=== PATIENT | female | born 1925 | race Caucasian/White ===

== ENCOUNTER 2017-03-22 22:32 | Inpatient (IN) | payer MEDICARE ==
[~2017-03-22] VITALS: Ht 154.9 cm; Wt 73.5 kg
[~2017-03-22 22:32] MED LIST: BISA10R PR; CITA-48 PO; DOCU1CAP39 PO; E.E.200S PO; ENOX30P SQ; FLEEENE3 PR; GABA300 PO; LEVO100T4 PO; LEVO125T48 PO; LOMO2.5T PO; LORT5TAB PO; MAGN30S PO; MAGN400 PO; MEVA40TA PO; MEVA40TA6 PO; NIFE1TAB85 PO; ONDAN4 PO; PRAM1TAB PO; PRIL20CA PO; PRIL40CA PO; TRAM50 PO; VITA200017 PO; [UNRECOGNIZED DRUG - CODE] PO
[2017-03-22 22:34] VITALS: BP 140/78; PULSE 83; RESP 16; TEMP 98; O2SAT 99
[2017-03-22] MEDS ORDERED: KETOROLAC TROMETHAMINE 30 MG/ML (IVP) VIAL IV PUSH ONE (23:45)
[2017-03-22] MEDS ORDERED: SODIUM CHLORIDE 0.9% FLUSH 10 ML FLUSH IVF PRN (23:45)
[2017-03-23] VITALS (7 sets, daily range): BP systolic 102–138; BP diastolic 53–68; PULSE 73–91; RESP 16–19; TEMP 97.4–98.4; O2SAT 95–98
[2017-03-23 00:16] LABS: AUTOMATED NEUTROPHIL # 6.4 TH/MM3 (1.8-7.7); BASOPHIL % 0.4 % (0.0-2.0); EOSINOPHIL # 0.2 TH/MM3 (0-0.4); EOSINOPHIL % 2.9 % (0.0-4.0); HEMO FLAGS DIFF FINAL; LYMPH % 15.3 % (9.0-44.0); LYMPHOCYTE # 1.3 TH/MM3 (1.0-4.8); MEAN CELL VOLUME 81.8 FL (80.0-100.0); MEAN CORPUSCULAR HEMOGLOBIN 26.8 PG (27.0-34.0); MEAN CORPUSCULAR HGB CONC 32.8 % (32.0-36.0); MONO % 6.8 % (0.0-8.0); NEUT % 74.6 % (16.0-70.0); PLATELET COUNT 170 TH/MM3 (150-450); RED BLOOD COUNT 4.89 MIL/MM3 (4.00-5.30); WHITE BLOOD COUNT 8.5 TH/MM3 (4.0-11.0)
[2017-03-23 00:33] LABS: BICARBONATE 28.4 MEQ/L (21.0-32.0); POTASSIUM 3.9 MEQ/L (3.5-5.1)
[2017-03-23] MEDS ORDERED: IOHEXOL 350 MG/ML 10 ML VIAL (for RAD DIAG) IVCONTRAST ONE (01:13)
[2017-03-23 01:41] LABS: BLOOD, URINE NEG (NEG); COMMENT (UR) CATH-CULTURE IND; CULTURE IF INDICATED CATH CULTURE IND; GLUCOSE,URINE NEG (NEG); HYALINE CAST, URINE 3 /lpf (RARE); KETONE, URINE NEG (NEG); MUCUS URINE FEW /lpf (OCC); NITRITE,URINE POS (NEG); SQUAMOUS EPITHELIAL CELL URINE 1 /hpf (0-5); URINE COLOR YELLOW (YELLW/STRAW)
[2017-03-23] MEDS ORDERED: CLINDAMYCIN 600 MG/NS PREMIX 50 ML IV ONE (01:45)
--- NOTE | 2017-03-23 02:14 | RADRPT ---
EXAM DATE/TIME: 03/23/2017 00:32 [facility] COMPARISON: MRI BRAIN W/O CONTRAST, June 19, 2010, 8:59. MRI BRAIN W/O CONTRAST, June 17, 2010, 16:58. CT BRA IN W/O CONTRAST, August 07, 2015, 14:25. INDICATIONS : Left sided neck swelling. IV CONTRAST: 70 cc Omnipaque 350 (iohexol) IV RADIATION DOSE: 14.38 CTDIvol (mGy) MEDICAL HISTORY : Hypertension. Cardiovascular disease SURGICAL HISTORY : Appendectomy. Cholecystectomy.Hysterectomy. ENCOUNTER: Initial ACUITY: 1 day PAIN SCALE: 3/10 LOCATION: neck TECHNIQUE: Volumetric scanning of the neck was performed. Using automated exposure control and adjustment of th e mA and/or kV according to patient size, radiation dose was kept as low as reasonably achievable to obtain optimal diagnostic quality images. DICOM format image data is available electronically for r eview and comparison. FINDINGS: There is an extra-axial appearing mass in the left frontal region intracranially measured 3.1 x 2.2 c m in AP and transverse dimension. This has been described previously. The esophagus is distended and fluid-filled. Nasopharynx, oropharynx, hypopharynx and larynx are unremarkable. Thyroid is unremarkab le. The submandibular glands and right parotid gland are normal. The left parotid gland demonstrates increased density relative to the right without focal mass. There is stranding of the subcutaneous fa t of the left face and skin thickening characteristic of cellulitis. A parotitis is also suspected gi elias the asymmetric enhancement of the left parotid gland. There is atherosclerotic plaquing of the bi lateral carotid bifurcations. No pathologically enlarged lymph nodes are identified. CONCLUSION: 1. Abnormal stranding of the subcutaneous fat and skin thickening left neck and parotid region with a symmetric enhancement of the left parotid as compared to the right. The findings would be characteris tic of a parotitis and cellulitis. 2. Mildly distended, fluid-filled esophagus is present. 3. Extra-axial left frontal intracranial mass previously characterized as a meningioma. 4. Atherosclerosis. Ag Flower MD on March 23, 2017 at 2:09 Board Certified Radiologist. This report was verified electronically.
--- NOTE | 2017-03-23 02:31 | PD ---
HPI Chief Complaint: Skin Problem Time Seen by Provider: 23:35 Travel History International Travel<30 days: No Contact w/Intl Traveler<30days: No Traveled to known affect area: No History of Present Illness HPI 89 year-old female presents to the emergency department in the care of her family for one day of progressively worsening redness and swelling to the right side of the face and neck. No fever or chills. Patient has noted some soreness with swallowing but no difficulty swallowing or handling her oral secretions. Patient denies any injury. Family members have noticed increasing swelling significant this evening. Patient lives by herself. Patient is currently on no antibiotics. Patient has extensive past medical history including hypothyroidism dyslipidemia fibromyalgia depression anxiety osteoarthritis status post appendectomy cholecystectomy shoulder fracture hysterectomy cervical disc disease restless leg syndrome. Family has been checking on her frequently. This evening symptoms also associated with nausea and vomiting. No chest pain no shortness of breath no stridor no hoarseness. No abdominal pain no flank pain dysuria frequency urgency. Has noted increased generalized weakness. Pain is 10 over 10 intensity. PFSH Past Medical History Narrative Medical Dyslipidemia hypothyroidism airway bowel syndrome depression and anxiety fibromyalgia osteoarthritis restless leg syndrome appendectomy cholecystectomy to [facility] repair shoulder fracture repair hysterectomy cervical spine nerve block; no tobacco use no alcohol use; nursing notes reviewed Hx Anticoagulant Therapy: No Anxiety: Yes Depression: Yes Cancer: No Cardiovascular Problems: Yes High Cholesterol: Yes Diabetes: No Endocrine: Yes Gastrointestinal Disorders: Yes (Appy/ choly) Glaucoma: No Gout: Yes Genitourinary: No Hepatitis: No Hiatal Hernia: No Hypertension: Yes Implanted Vascular Access Dvce: No Medical other: No Musculoskeletal: Yes Neurologic: No Reproductive: No Respiratory: No Thyroid Disease: Yes (hypothytroidism) Tubal Ligation: Yes Past Surgical History Abdominal Surgery: Yes (ALEJANDRA) Appendectomy: Yes Section: Yes Cholecystectomy: Yes Eye Surgery: Yes (CATARACT RIGHT EYE) Genitourinary Surgery: Yes (bladder suspension) Hysterectomy: Yes Pacemaker: No Other Surgery: Yes Social History Alcohol Use: No Tobacco Use: No Substance Use: No Allergies-Medications (Allergen,Severity, Reaction): Coded Allergies: asparagus (Unverified Allergy, Severe, sob, 03/22/17) elizalde pod (Unverified Allergy, Severe, sob, 03/22/17) duloxetine (Unverified Allergy, Unknown, 03/22/17) rivaroxaban (Unverified Allergy, Unknown, 03/22/17) trazodone (Unverified Allergy, Unknown, 03/22/17) *MDRO Multi-Drug Resistant Organism (Verified Adverse Reaction, Unknown, 03/22/17) ESBL+E.Coli urine 07/2015 Reported Meds & Prescriptions Reported Meds & Active Scripts Active Active Prescriptions or Reported Medications Unobtainable Review of Systems Except as stated in HPI: all other systems reviewed are Neg General / Constitutional: No: Fever, Chills HENT: No: Congestion Cardiovascular: No: Chest Pain or Discomfort Respiratory: No: Shortness of Breath Gastrointestinal: Positive: Nausea, Vomiting, No: Abdominal Pain Genitourinary: No: Dysuria Musculoskeletal: No: Weakness Skin: Positive Rash, Positive Lumps Neurologic: Positive: Weakness, No: Dizziness, Syncope, Focal Abnormalities Psychiatric: No: Anxiety Hematologic/Lymphatic: No: Easy Bruising Physical Exam Narrative GENERAL: Elderly frail female in no acute distress no respiratory distress SKIN: Warm and dry. HEAD: Normocephalic. EYES: No scleral icterus. No injection or drainage. NECK: Supple, trachea midline. No JVD or lymphadenopathy. Left-sided neck redness swelling and induration without fluctuance tenderness is noted increased warmth CARDIOVASCULAR: Regular rate and rhythm without murmurs, gallops, or rubs. RESPIRATORY: Breath sounds equal bilaterally. No accessory muscle use. GASTROINTESTINAL: Abdomen soft, non-tender, nondistended. MUSCULOSKELETAL: No cyanosis, or edema. BACK: Nontender without obvious deformity. No CVA tenderness. Data Data Last Documented VS Vital Signs Date Time Temp Pulse Resp B/P (MAP) Pulse Ox O2 Delivery O2 Flow Rate FiO2 03/22/17 22:34 98.0 83 16 140/78 (98) 99 Room Air Orders Orders Basic Metabolic Panel (Bmp) (03/22/17 23:35) Complete Blood Count With Diff (03/22/17 23:35) Blood Culture (03/22/17 23:35) Ct Soft Tiss Neck W Iv Cont (03/22/17 23:35) Iv Access Insert/Monitor (03/22/17 23:35) Sodium Chloride 0.9% Flush (Ns Flush) (03/22/17 23:45) Ketorolac Inj (Toradol Inj) (03/22/17 23:45) Urinalysis - C+S If Indicated (03/22/17 23:35) Iohexol 350 Inj (Omnipaque 350 Inj) (03/23/17 01:13) Clindamycin 600 Mg/Ns Premix (Cleocin 60 (03/23/17 01:45) Urine Culture (03/23/17 01:30) Admit To Inpatient (03/23/17 ) Code Status (03/23/17 02:37) Vital Signs (Adult) Q4H (03/23/17 02:37) Activity Oob With Assistance (03/23/17 02:37) Diet Regular Basic (03/23/17 Breakfast) Sodium Chloride 0.9% Flush (Ns Flush) (03/23/17 02:45) Sodium Chloride 0.9% Flush (Ns Flush) (03/23/17 09:00) Acetaminophen (Tylenol) (03/23/17 02:45) Ondansetron Inj (Zofran Inj) (03/23/17 02:45) Basic Metabolic Panel (Bmp) (03/24/17 06:00) Complete Blood Count With Diff (03/24/17 06:00) Chest, Single Ap (03/23/17 02:37) Electrocardiogram (03/23/17 02:37) Pt Request For Service (03/23/17 02:37) Scd Bilateral/Knee High KELLEY.BID (03/23/17 02:37) Naloxone Inj (Narcan Inj) (03/23/17 02:45) Magnesium Hydroxide Liq (Milk Of Magnesi (03/23/17 02:45) Inpatient Certification (03/23/17 ) Admit Order (Ed Use Only) (03/23/17 ) Vital Signs (Adult) Q4H (03/23/17 02:45) Activity Oob With Assistance (03/23/17 02:45) Notify Dr: Other (03/23/17 02:45) Labs Laboratory Tests Test 03/22/17 23:41 03/23/17 01:30 White Blood Count 8.5 TH/MM3 Red Blood Count 4.89 MIL/MM3 Hemoglobin 13.1 GM/DL Hematocrit 40.0 % Mean Corpuscular Volume 81.8 FL Mean Corpuscular Hemoglobin 26.8 PG Mean Corpuscular Hemoglobin Concent 32.8 % Red Cell Distribution Width 15.0 % Platelet Count 170 TH/MM3 Mean Platelet Volume 9.4 FL Neutrophils (%) (Auto) 74.6 % Lymphocytes (%) (Auto) 15.3 % Monocytes (%) (Auto) 6.8 % Eosinophils (%) (Auto) 2.9 % Basophils (%) (Auto) 0.4 % Neutrophils # (Auto) 6.4 TH/MM3 Lymphocytes # (Auto) 1.3 TH/MM3 Monocytes # (Auto) 0.6 TH/MM3 Eosinophils # (Auto) 0.2 TH/MM3 Basophils # (Auto) 0.0 TH/MM3 CBC Comment DIFF FINAL Differential Comment Blood Urea Nitrogen 13 MG/DL Creatinine 0.87 MG/DL Random Glucose 99 MG/DL Calcium Level 9.2 MG/DL Sodium Level 130 MEQ/L Potassium Level 3.9 MEQ/L Chloride Level 95 MEQ/L Carbon Dioxide Level 28.4 MEQ/L Anion Gap 7 MEQ/L Estimat Glomerular Filtration Rate 61 ML/MIN Urine Color YELLOW Urine Turbidity HAZY Urine pH 6.0 Urine Specific [place] 1.050 Urine Protein TRACE mg/dL Urine Glucose (UA) NEG mg/dL Urine Ketones NEG mg/dL Urine Occult Blood NEG Urine Nitrite POS Urine Bilirubin NEG Urine Urobilinogen LESS THAN 2.0 MG/DL Urine Leukocyte Esterase LARGE Urine RBC 3 /hpf Urine WBC 28 /hpf Urine WBC Clumps MOD Urine Squamous Epithelial Cells 1 /hpf Urine Hyaline Casts 3 /lpf Urine Mucus FEW /lpf Microscopic Urinalysis Comment CATH-CULTURE IND MDM Medical Decision Making Medical Screen Exam Complete: Yes Emergency Medical Condition: Yes Medical Record Reviewed: Yes Interpretation(s) CBC & BMP Diagram 03/22/17 23:41 Calcium Level 9.2 Vital Signs Date Time Temp Pulse Resp B/P (MAP) Pulse Ox O2 Delivery O2 Flow Rate FiO2 03/22/17 22:34 98.0 83 16 140/78 (98) [address] soft tissue neck FINDINGS: There is an extra-axial appearing mass in the left frontal region intracranially measured 3.1 x 2.2 cm in AP and transverse dimension. This has been described previously. The esophagus is distended and fluid-filled. Nasopharynx, oropharynx, hypopharynx and larynx are unremarkable. Thyroid is unremarkable. The submandibular glands and right parotid gland are normal. The left parotid gland demonstrates increased density relative to the right without focal mass. There is stranding of the subcutaneous fat of the left face and skin thickening characteristic of cellulitis. A parotitis is also suspected given the asymmetric enhancement of the left parotid gland. There is atherosclerotic plaquing of the bilateral carotid bifurcations. No pathologically enlarged lymph nodes are identified. CONCLUSION: 1. Abnormal stranding of the subcutaneous fat and skin thickening left neck and parotid region with asymmetric enhancement of the left parotid as compared to the right. The findings would be characteristic of a parotitis and cellulitis. 2. Mildly distended, fluid-filled esophagus is present. 3. Extra-axial left frontal intracranial mass previously characterized as a meningioma. 4. Atherosclerosis. EKG normal sinus rhythm rate [address] elevation injury pattern or ectopy noted left anterior fascicular block is present incomplete right bundle branch block noted Differential Diagnosis Cellulitis parotitis sialadenitis mass sepsis also to consider unlikely vascular abnormality aneurysm Narrative Course IV access obtained specimens collected and sent for resulting imaging studies ordered patient administered IV antibiotic Physician Communication Physician Communication discussed with Dr Griffith for admission Diagnosis Primary Impression: Parotitis, acute Additional Impression: Cellulitis of face Admitting Information Admitting Physician Requests: Observation Scripts Unable to Obtain Active Prescriptions or Reported Meds Edda Robbins MD Mar 23, 2017 02:31
[2017-03-23] MEDS ORDERED: HYDROmorphone HCL PF 1 MG/ML VIAL IV PUSH PRN (02:45)
[2017-03-23] MEDS ORDERED: ONDANSETRON HCL 4 MG/2 ML VIAL IVP PRN (02:45)
[2017-03-23] MEDS ORDERED: NALOXONE HCL 0.4 MG/ML AMP IV PUSH PRN (02:45)
[2017-03-23] MEDS ORDERED: DOCUSATE SODIUM 100 MG CAP PO ONE (02:45)
[2017-03-23] MEDS ORDERED: ACETAMINOPHEN 325 MG TAB PO PRN (02:45)
[2017-03-23] MEDS ORDERED: SODIUM CHLORIDE 0.9% FLUSH 10 ML FLUSH IV FLUSH PRN (02:45)
[2017-03-23] MEDS ORDERED: MAGNESIUM HYDROXIDE SUSP 30 ML CUP PO PRN (02:45)
--- NOTE | 2017-03-23 03:14 | RADRPT ---
EXAM DATE/TIME: 03/23/2017 03:01 [facility] COMPARISON: CHEST SINGLE AP, August 12, 2015, 13:17. INDICATIONS : Cough. MEDICAL HISTORY : Hypertension. Cardiovascular disease. Asthma. SURGICAL HISTORY : Appendectomy. Cholecystectomy.Hysterectomy. ENCOUNTER: Initial ACUITY: 1 day PAIN SCORE: 0/10 LOCATION: Bilateral chest FINDINGS: Cardiomegaly. Aortic calcification. No consolidation or effusion. Lung findings are diminished. CONCLUSION: No acute disease. Ag Flower MD on March 23, 2017 at 3:12 Board Certified Radiologist. This report was verified electronically.
[2017-03-23] MEDS: PIPERACIL-TAZO 3.375 GM PREMIX 50 ML IV SCH ×2 (04:00→09:30)
--- NOTE | 2017-03-23 08:02 | HHI.HP ---
HPI Service [facility] Hospitalists Primary Care Physician Paula Garrido MD Admission Diagnosis Facial cellulitis L parotitis Chief Complaint: pain and swelling of neck Travel History International Travel<30 Days: No Contact w/Intl Traveler <30 Da: No Traveled to Known Affected Are: No History of Present Illness Ms. Colmenares is a pleasant 89 y/o female with hypothyroidism, hyperlipidemia, RLS, Fibromyalgia DDD and depression/anxiety. Patient presents to the hospital due to progressively worsening redness and swelling to the left side of the face and neck, patient unable to tell exactly how long this has been present. Patient has noted some soreness with swallowing but no difficulty swallowing or handling her oral secretions. Patient denies any injury. Family members have noticed increasing swelling significant on the evening of 03/22. Patient lives by herself. Family has been checking on her frequently. This evening symptoms also associated with increased generalized weakness, nausea and vomiting. Patient denies fevers, chills, chest pain, shortness of breath, stridor, hoarseness, abdominal pain, flank pain, dysuria, increased urinary frequency urgency. Review of Systems Constitutional: DENIES: Fatigue, Fever, Chills Eyes: DENIES: Blurred vision, Diplopia, Vision loss Ears, nose, mouth, throat: COMPLAINS OF: Throat pain Respiratory: DENIES: Cough, Sputum production, Shortness of breath Cardiovascular: DENIES: Chest pain, Palpitations, Dyspnea on Exertion, Lower Extremity Edema Gastrointestinal: COMPLAINS OF: Nausea, Vomiting, DENIES: Abdominal pain Neurologic: DENIES: Abnormal gait, Headache, Localized weakness, Speech Problems Psychiatric: COMPLAINS OF: Confusion (trying to reach family to see if this is patient's baseline), DENIES: Anxiety, Depression Past Family Social History Past Medical History Hyperlipidemia Hypothyroidism IBS Depression Anxiety Fibromyalgia DDD Osteoarthritis RLS Past Surgical History Appendectomy Cholecystectomy Rectocele repair Left shoulder fracture repair BEATRIS with BSO Cervical spine nerve block Reported Medications Pramipexole ER 24 HR (Pramipexole Dihydrochloride) 1.5 Mg Tab 1.5 Mg PO DAILY Potassium Chloride ER (Potassium Chloride) 8 Meq Cap 8 Meq PO DAILY PRN Ditropan (Oxybutynin Chloride) 5 Mg Tab 5 Mg PO Q12HR Omeprazole 20 Mg Tab 20 Mg PO DAILY Multiple Vitamin (Multivitamin with Minerals) 1 Each Tablet Lovastatin 40 Mg Tab 40 Mg PO HS Levothyroxine (Levothyroxine Sodium) 100 Mcg Tab 100 Mcg PO DAILY Lasix (Furosemide) 20 Mg Tab 20 Mg PO DAILY PRN Bupropion HCl ER 24 HR (Bupropion HCl) 300 Mg Tab 300 Mg PO DAILY Allergies: Coded Allergies: asparagus (Unverified Allergy, Severe, sob, 03/22/17) elizalde pod (Unverified Allergy, Severe, sob, 03/22/17) duloxetine (Unverified Allergy, Unknown, 03/22/17) rivaroxaban (Unverified Allergy, Unknown, 03/22/17) trazodone (Unverified Allergy, Unknown, 03/22/17) Active Ordered Medications Current Medications Medications (Trade) Dose Ordered Sig/Heide Route Start Time Stop Time Status Last Admin (NS Flush) 2 ml UNSCH PRN IV FLUSH 03/23/17 02:45 (NS Flush) 2 ml BID IV FLUSH 03/23/17 09:00 (Tylenol) 650 mg Q4H PRN PO 03/23/17 02:45 (Zofran Inj) 4 mg Q6H PRN IVP 03/23/17 02:45 (Narcan Inj) 0.4 mg UNSCH PRN IV PUSH 03/23/17 02:45 (Milk Of Magnesia Liq) 30 ml Q12H PRN PO 03/23/17 02:45 Piperacillin Sod/ Tazobactam Sod 50 ml @ 100 mls/hr Q6H IV 03/23/17 04:00 03/23/17 04:00 (Dorset 5-325 Mg) 1 tab Q6H PRN PO 03/23/17 02:45 (Dilaudid Pf Inj) 0.2 mg Q4H PRN IV PUSH 03/23/17 02:45 Family History Mother with hx of COPD Social History Hx of tobacco use Physical Exam Vital Signs Vital Signs Date Time Temp Pulse Resp B/P (MAP) Pulse Ox O2 Delivery O2 Flow Rate FiO2 03/23/17 03:54 98.4 82 17 124/60 (81) 97 03/22/17 22:34 98.0 83 16 140/78 (98) 99 Room Air Physical Exam GENERAL: This is a well-nourished, well-developed patient, noted erythema and edema left side of neck no airway compromise at this time SKIN: erythema and edema left side of neck. left side of neck exquisitely tender to light palpation HEAD: Atraumatic. Normocephalic. No temporal or scalp tenderness. EYES:Extraocular motions intact. No scleral icterus. No injection or drainage. ENT: Nose without bleeding, purulent drainage or septal hematoma. Throat without erythema, tonsillar hypertrophy or exudate. Uvula midline. Airway patent. NECK: Trachea midline. No JVD or lymphadenopathy. Supple, nontender, no meningeal signs. CARDIOVASCULAR: Regular rate and rhythm RESPIRATORY: Clear to auscultation. Breath sounds equal bilaterally. GASTROINTESTINAL: Abdomen soft, non-tender, nondistended. MUSCULOSKELETAL: Extremities without clubbing, cyanosis, or edema. No joint tenderness, effusion, or edema noted. No calf tenderness. Negative Homans sign bilaterally. NEUROLOGICAL: Awake and alert with confusion. No focal deficits noted. Motor and sensory grossly within normal limits. 4 out of 5 muscle strength in all muscle groups. Normal speech. Laboratory Laboratory Tests Test 03/22/17 23:41 03/23/17 01:30 White Blood Count 8.5 Red Blood Count 4.89 Hemoglobin 13.1 Hematocrit 40.0 Mean Corpuscular Volume 81.8 Mean Corpuscular Hemoglobin 26.8 Mean Corpuscular Hemoglobin Concent 32.8 Red Cell Distribution Width 15.0 Platelet Count 170 Mean Platelet Volume 9.4 Neutrophils (%) (Auto) 74.6 Lymphocytes (%) (Auto) 15.3 Monocytes (%) (Auto) 6.8 Eosinophils (%) (Auto) 2.9 Basophils (%) (Auto) 0.4 Neutrophils # (Auto) 6.4 Lymphocytes # (Auto) 1.3 Monocytes # (Auto) 0.6 Eosinophils # (Auto) 0.2 Basophils # (Auto) 0.0 CBC Comment DIFF FINAL Differential Comment Blood Urea Nitrogen 13 Creatinine 0.87 Random Glucose 99 Calcium Level 9.2 Sodium Level 130 Potassium Level 3.9 Chloride Level 95 Carbon Dioxide Level 28.4 Anion Gap 7 Estimat Glomerular Filtration Rate 61 Urine Color YELLOW Urine Turbidity HAZY Urine pH 6.0 Urine Specific [place] 1.050 Urine Protein TRACE Urine Glucose (UA) NEG Urine Ketones NEG Urine Occult Blood NEG Urine Nitrite POS Urine Bilirubin NEG Urine Urobilinogen LESS THAN 2.0 Urine Leukocyte Esterase LARGE Urine RBC 3 Urine WBC 28 Urine WBC Clumps MOD Urine Squamous Epithelial Cells 1 Urine Hyaline Casts 3 Urine Mucus FEW Microscopic Urinalysis Comment CATH-CULTURE IND Date/Time Source Procedure Growth Status 03/22/17 23:41 Blood Peripheral Aerobic Blood Culture Pending Received 03/22/17 23:41 Blood Peripheral Anaerobic Blood Culture Pending Received 03/23/17 01:30 Urine Catheterized Urine Urine Culture Pending Received Result Diagram: 03/22/17 2341 03/22/17 2341 Imaging Last Impressions Chest X-Ray 03/23/17 0237 Signed Impressions: Service Date/Time: Thursday, March 23, 2017 03:01 - CONCLUSION: No acute disease. Ag Flower MD Neck CT 03/22/17 2335 Signed Impressions: Service Date/Time: Thursday, March 23, 2017 00:32 - CONCLUSION: 1. Abnormal stranding of the subcutaneous fat and skin thickening left neck and parotid region with asymmetric enhancement of the left parotid as compared to the right. The findings would be characteristic of a parotitis and cellulitis. 2. Mildly distended, fluid-filled esophagus is present. 3. Extra-axial left frontal intracranial mass previously characterized as a meningioma. 4. Atherosclerosis. Ag Flower MD Caprini VTE Risk Assessment Caprini VTE Risk Assessment: Mod/High Risk (score >= 2) Caprini Risk Assessment Model Point Value = 1 Point Value = 2 Point Value = 3 Point Value = 5 Age 41-60 Minor surgery BMI > 25 kg/m2 Swollen legs Varicose veins or History of unexplained or recurrent spontaneous Oral contraceptives or hormone replacement Sepsis (< 1 month) Serious lung disease, including pneumonia (< 1 month) Abnormal pulmonary function Acute myocardial infarction Congestive heart failure (< 1 month) History of inflammatory bowel disease Medical patient at bed rest Age 61-74 Arthroscopic surgery Major open surgery (> 45 min) Laparoscopic surgery (> 45 min) Malignancy Confined to bed (> 72 hours) Immobilizing plaster cast Central venous access Age >= 75 History of VTE Family history of VTE Factor V Leiden Prothrombin [id number] Lupus anticoagulant Anticardiolipin antibodies Elevated serum homocysteine Heparin-induced thrombocytopenia Other congenital or acquired thrombophilia Stroke (< 1 month) Elective arthroplasty Hip, pelvis, or leg fracture Acute spinal cord injury (< 1 month) Prophylaxis Regimen Total Risk Factor Score Risk Level Prophylaxis Regimen 0-1 Low Early ambulation 2 Moderate Order ONE of the following: *Sequential Compression Device (SCD) *Heparin 5000 units SQ BID 3-4 Higher Order ONE of the following medications: *Heparin 5000 units SQ TID *Enoxaparin/Lovenox 40 mg SQ daily (WT < 150 kg, CrCl > 30 mL/min) *Enoxaparin/Lovenox 30 mg SQ daily (WT < 150 kg, CrCl > 10-29 mL/min) *Enoxaparin/Lovenox 30 mg SQ BID (WT < 150 kg, CrCl > 30 mL/min) AND/OR *Sequential Compression Device (SCD) 5 or more Highest Order ONE of the following medications: *Heparin 5000 units SQ TID (Preferred with Epidurals) *Enoxaparin/Lovenox 40 mg SQ daily (WT < 150 kg, CrCl > 30 mL/min) *Enoxaparin/Lovenox 30 mg SQ daily (WT < 150 kg, CrCl > 10-29 mL/min) *Enoxaparin/Lovenox 30 mg SQ BID (WT < 150 kg, CrCl > 30 mL/min) AND *Sequential Compression Device (SCD) Assessment and Plan Problem List: (1) Parotitis, acute ICD Codes: K11.21 - Acute sialoadenitis Status: Acute Plan: Patient had noticed progressively worsening redness and swelling to the left side of the face and neck. Patient has noted some soreness with swallowing but no difficulty swallowing or handling her oral secretions. Patient denies any injury. Family members have noticed increasing swelling significant this evening with associated generalized weakness, nausea and vomiting. - Neck CT reviewed and reveals: 1. Abnormal stranding of the subcutaneous fat and skin thickening left neck and parotid region with asymmetric enhancement of the left parotid as compared to the right. The findings would be characteristic of a parotitis and cellulitis. 2. Mildly distended, fluid-filled esophagus is present. 3. Extra-axial left frontal intracranial mass previously characterized as a meningioma. 4. Atherosclerosis. - Patient given Zosyn and Clindamycin IV in ER - acetaminophen and norco as needed for pain - Monitor patient closely - blood cultures - urine culture - will start IV hydration - Will change to Nafcillin and monitor closely - if area consolidates may request I&D per IR - may also consult ENT if this does not improve with fluids and IV abx DVT prophlaysis with SCDs (2) Cellulitis of face ICD Codes: L03.211 - Cellulitis of face Status: Acute Plan: see above (3) Nausea & vomiting ICD Codes: R11.2 - Nausea with vomiting, unspecified Status: Resolved Plan: - Zofran needed - supportive care (4) UTI (urinary tract infection) ICD Codes: N39.0 - Urinary tract infection, site not specified Plan: UA reviewed consistent with UTI patient on Zosyn which will also cover UTI await cultures results (5) Hyponatremia ICD Codes: E87.1 - Hypo-osmolality and hyponatremia Status: Acute Plan: Na 130 on admission likely secondary to poor PO intake with encourage PO intake start IV fluids recheck in AM (6) Hypothyroidism ICD Codes: E03.9 - Hypothyroidism, unspecified Status: Chronic Plan: - Cont. home meds (7) Hyperlipidemia ICD Codes: E78.5 - Hyperlipidemia, unspecified Status: Chronic Plan: - Cont. home meds (8) Depression ICD Codes: F32.9 - Major depressive disorder, single episode, unspecified Status: Chronic Plan: - Cont. home meds Assessment and Plan Patient examined. Assessment and plan formulated with Katelyn Sainz PA-C. I agree with the above. Katelyn Sainz Mar 23, 2017 08:02 Romie Griffith DO Mar 28, 2017 13:06
[2017-03-23] MEDS ORDERED: OXYB5TAB8 PO (08:13)
[2017-03-23] MEDS ORDERED: OMEP20TA93 PO (08:13)
[2017-03-23] MEDS ORDERED: POTA8CAP PO (08:13)
[2017-03-23] MEDS ORDERED: PRAM1TAB PO (08:13)
[2017-03-23] MEDS ORDERED: FURO1TAB62 PO (08:13)
[2017-03-23] MEDS ORDERED: LOVA40TA PO (08:13)
[2017-03-23] MEDS ORDERED: LEVO100T5 PO ×2 (08:13→13:02)
[2017-03-23] MEDS ORDERED: BUPR300T PO (08:13)
[2017-03-23] MEDS ORDERED: NO ITAB (08:13)
[2017-03-23] MEDS: SODIUM CHLORIDE 0.9% FLUSH 10 ML FLUSH IV FLUSH SCH ×2 (09:29→21:00)
[2017-03-23] MEDS: ACETAMINOPHEN/HYDROcodone 325 MG/5 MG TAB PO PRN ×3 (09:37→21:39)
[2017-03-23] MEDS: SODIUM CHLOR 0.9% 1000 ML INJ 1,000 ML IV SCH ×2 (12:12→14:15)
--- NOTE | 2017-03-23 12:41 | EKG ---
Date Performed: 03/23/2017 Time Performed: 02:51:54 PTAGE: 89 years EKG: Sinus rhythm PATTERN CONSISTENT WITH PULMONARY DISEASE INCOMPLETE RIGHT BUNDLE BRANCH BLOCK LEFT ANTERIOR FASCICU LAR BLOCK ABNORMAL ECG PREVIOUS TRACING : 08/07/2015 15.36 Since previous tracing, axis is more leftward and the incom plete right bundle branch block is new. DOCTOR: Stan Babcock Interpretating Date/Time 03/23/2017 12:40:03
[2017-03-23] MEDS ORDERED: OXYC1CAP2 PO (13:02)
[2017-03-23] MEDS ORDERED: POTA1TAB77 PO (13:02)
[2017-03-23] MEDS ORDERED: FURO20TA PO (13:02)
[2017-03-23] MEDS: CLINDAMYCIN INJ 600 MG in SODIUM CHLORIDE 0.9% INJ 100 ML IV SCH ×2 (14:19→21:46)
[2017-03-23] MEDS ORDERED: NAFCILLIN IV SCH ×5 (15:00→16:00)
[2017-03-23] MEDS ORDERED: SODIUM CHLORIDE 0.9% IV SCH ×5 (15:00→16:00)
[2017-03-23] MEDS: NAFCILLIN IV SCH ×3 (16:30→23:57)
[2017-03-23] MEDS: SODIUM CHLORIDE 0.9% IV SCH ×3 (16:30→23:57)
[2017-03-23] MEDS: OXYBUTYNIN CHLORIDE 5 MG TAB PO SCH (21:00)
[2017-03-23] MEDS: PRAVASTATIN SOD 40 MG TAB PO SCH (21:40)
[2017-03-24] VITALS: BP 109/50; PULSE 69; RESP 18; TEMP 97.6; O2SAT 97
[2017-03-24] MEDS: SODIUM CHLOR 0.9% 1000 ML INJ 1,000 ML IV SCH ×3 (01:20→16:49)
[2017-03-24] MEDS: NAFCILLIN IV SCH ×2 (03:41→08:34)
[2017-03-24] MEDS: ACETAMINOPHEN/HYDROcodone 325 MG/5 MG TAB PO PRN (03:41)
[2017-03-24] MEDS: SODIUM CHLORIDE 0.9% IV SCH ×2 (03:41→08:34)
[2017-03-24 04:53] VITALS: BP 105/51; PULSE 81; RESP 18; TEMP 97.6; O2SAT 97
[2017-03-24] MEDS: LEVOTHYROXINE SODIUM 100 MCG TAB PO SCH (05:45)
[2017-03-24] MEDS ORDERED: CLINDAMYCIN 600 MG/NS PREMIX 50 ML IV SCH (06:00)
[2017-03-24 08:08] LABS: AUTOMATED NEUTROPHIL # 4.3 TH/MM3 (1.8-7.7); BASOPHIL % 0.7 % (0.0-2.0); EOSINOPHIL # 0.2 TH/MM3 (0-0.4); EOSINOPHIL % 3.2 % (0.0-4.0); HEMATOCRIT 32.9 % (35.0-46.0); HEMO FLAGS DIFF FINAL; LYMPH % 18.7 % (9.0-44.0); LYMPHOCYTE # 1.2 TH/MM3 (1.0-4.8); MEAN CELL VOLUME 81.2 FL (80.0-100.0); MEAN CORPUSCULAR HEMOGLOBIN 26.9 PG (27.0-34.0); MEAN CORPUSCULAR HGB CONC 33.2 % (32.0-36.0); NEUT % 67.4 % (16.0-70.0); PLATELET COUNT 125 TH/MM3 (150-450); RED BLOOD COUNT 4.05 MIL/MM3 (4.00-5.30); RED CELL DISTRIBUTION WIDTH 14.9 % (11.6-17.2); WHITE BLOOD COUNT 6.4 TH/MM3 (4.0-11.0)
[2017-03-24 08:10] VITALS: BP 93/45; PULSE 73; RESP 20; TEMP 97.8; O2SAT 94
[2017-03-24] MEDS: SODIUM CHLORIDE 0.9% FLUSH 10 ML FLUSH IV FLUSH SCH ×2 (08:33→21:19)
[2017-03-24] MEDS: buPROPion HCL 150 MG SUSTAINED RELEASE TAB PO SCH ×2 (08:34→21:20)
[2017-03-24] MEDS: PANTOPRAZOLE SOD 20 MG DELAYED RELEASE TAB PO SCH (08:34)
[2017-03-24] MEDS: OXYBUTYNIN CHLORIDE 5 MG TAB PO SCH ×2 (08:35→21:00)
[2017-03-24 08:46] LABS: BICARBONATE 25.1 MEQ/L (21.0-32.0); POTASSIUM 3.5 MEQ/L (3.5-5.1)
[2017-03-24] MEDS ORDERED: PRAMIPEXOLE 1.5 MG PO SCH (09:00)
[2017-03-24] MEDS ORDERED: buPROPion HCL 150 MG EXTENDED RELEASE TAB PO SCH (09:00)
--- NOTE | 2017-03-24 11:06 | HHI.PR ---
Subjective Remarks Patient reports pain Left side of neck not relieved by pain medication difficultly swallowing improving some denies SOB, dyspnea or difficulty managing oral secretions Objective Vitals Vital Signs Date Time Temp Pulse Resp B/P (MAP) Pulse Ox O2 Delivery O2 Flow Rate FiO2 03/24/17 08:10 97.8 73 20 93/45 (61) 94 03/24/17 04:53 97.6 81 18 105/51 (69) 97 03/24/17 00:00 97.6 69 18 109/50 (69) 97 03/23/17 19:30 97.8 73 19 115/53 (73) 98 03/23/17 17:16 97.5 77 18 138/62 (87) 96 03/23/17 17:00 18 03/23/17 15:36 97.6 77 16 118/54 (75) 95 03/23/17 12:50 97.8 75 16 113/54 (73) 96 Result Diagram: 03/24/17 0715 03/24/17 0715 Other Results Laboratory Tests Test 03/22/17 23:41 03/23/17 01:30 03/24/17 07:15 White Blood Count 8.5 TH/MM3 6.4 TH/MM3 Red Blood Count 4.89 MIL/MM3 4.05 MIL/MM3 Hemoglobin 13.1 GM/DL 10.9 GM/DL Hematocrit 40.0 % 32.9 % Mean Corpuscular Volume 81.8 FL 81.2 FL Mean Corpuscular Hemoglobin 26.8 PG 26.9 PG Mean Corpuscular Hemoglobin Concent 32.8 % 33.2 % Red Cell Distribution Width 15.0 % 14.9 % Platelet Count 170 TH/MM3 125 TH/MM3 Mean Platelet Volume 9.4 FL 9.2 FL Neutrophils (%) (Auto) 74.6 % 67.4 % Lymphocytes (%) (Auto) 15.3 % 18.7 % Monocytes (%) (Auto) 6.8 % 10.0 % Eosinophils (%) (Auto) 2.9 % 3.2 % Basophils (%) (Auto) 0.4 % 0.7 % Neutrophils # (Auto) 6.4 TH/MM3 4.3 TH/MM3 Lymphocytes # (Auto) 1.3 TH/MM3 1.2 TH/MM3 Monocytes # (Auto) 0.6 TH/MM3 0.6 TH/MM3 Eosinophils # (Auto) 0.2 TH/MM3 0.2 TH/MM3 Basophils # (Auto) 0.0 TH/MM3 0.0 TH/MM3 CBC Comment DIFF FINAL DIFF FINAL Differential Comment Blood Urea Nitrogen 13 MG/DL 10 MG/DL Creatinine 0.87 MG/DL 0.79 MG/DL Random Glucose 99 MG/DL 88 MG/DL Calcium Level 9.2 MG/DL 7.8 MG/DL Sodium Level 130 MEQ/L 134 MEQ/L Potassium Level 3.9 MEQ/L 3.5 MEQ/L Chloride Level 95 MEQ/L 102 MEQ/L Carbon Dioxide Level 28.4 MEQ/L 25.1 MEQ/L Anion Gap 7 MEQ/L 7 MEQ/L Estimat Glomerular Filtration Rate 61 ML/MIN 69 ML/MIN Urine Color YELLOW Urine Turbidity HAZY Urine pH 6.0 Urine Specific [place] 1.050 Urine Protein TRACE mg/dL Urine Glucose (UA) NEG mg/dL Urine Ketones NEG mg/dL Urine Occult Blood NEG Urine Nitrite POS Urine Bilirubin NEG Urine Urobilinogen LESS THAN 2.0 MG/DL Urine Leukocyte Esterase LARGE Urine RBC 3 /hpf Urine WBC 28 /hpf Urine WBC Clumps MOD Urine Squamous Epithelial Cells 1 /hpf Urine Hyaline Casts 3 /lpf Urine Mucus FEW /lpf Microscopic Urinalysis Comment CATH-CULTURE IND Imaging Last Impressions Chest X-Ray 03/23/17 0237 Signed Impressions: Service Date/Time: Thursday, March 23, 2017 03:01 - CONCLUSION: No acute disease. Ag Flower MD Neck CT 03/22/17 1473 Signed Impressions: Service Date/Time: Thursday, March 23, 2017 00:32 - CONCLUSION: 1. Abnormal stranding of the subcutaneous fat and skin thickening left neck and parotid region with asymmetric enhancement of the left parotid as compared to the right. The findings would be characteristic of a parotitis and cellulitis. 2. Mildly distended, fluid-filled esophagus is present. 3. Extra-axial left frontal intracranial mass previously characterized as a meningioma. 4. Atherosclerosis. Ag Flower MD Objective Remarks GENERAL: This is a well-nourished, well-developed patient, noted erythema and edema left side of neck no airway compromise at this time SKIN: left side of neck exquisitely tender to light palpation erythema and edema left side of neck. improved from yesterday ENT: Nose without bleeding, purulent drainage or septal hematoma. Throat without erythema, tonsillar hypertrophy or exudate. Uvula midline. Airway patent. CARDIOVASCULAR: Regular rate and rhythm RESPIRATORY: Clear to auscultation. Breath sounds equal bilaterally. GASTROINTESTINAL: Abdomen soft, non-tender, nondistended. MUSCULOSKELETAL: Extremities without clubbing, cyanosis, or edema. No joint tenderness, effusion, or edema noted. No calf tenderness. Negative Homans sign bilaterally. NEUROLOGICAL: Awake and alert with confusion. No focal deficits noted. Motor and sensory grossly within normal limits. 4 out of 5 muscle strength in all muscle groups. Normal speech. A/P Problem List: (1) Parotitis, acute ICD Codes: K11.21 - Acute sialoadenitis Status: Acute Plan: (1) Parotitis, acute ICD Codes: K11.21 - Acute sialoadenitis Status: Acute Plan: Patient had noticed progressively worsening redness and swelling to the left side of the face and neck. Patient has noted some soreness with swallowing but no difficulty swallowing or handling her oral secretions. Patient denies any injury. Family members have noticed increasing swelling significant this evening with associated generalized weakness, nausea and vomiting. - Neck CT reviewed and reveals: 1. Abnormal stranding of the subcutaneous fat and skin thickening left neck and parotid region with asymmetric enhancement of the left parotid as compared to the right. The findings would be characteristic of a parotitis and cellulitis. 2. Mildly distended, fluid-filled esophagus is present. 3. Extra-axial left frontal intracranial mass previously characterized as a meningioma. 4. Atherosclerosis. - Patient given Zosyn and Clindamycin IV in ER - increased to norco 10 mg and Dilaudid IV as needed for pain - Monitor patient closely - blood cultures - urine culture - continue IV hydration - continue Zosyn IV - speech therapy evaluated patient recommending mechanical soft diet with thin liquids - if area consolidates may request I&D per IR - may also consult ENT if this does not improve with fluids and IV abx DVT prophylaxis with SCDs (2) Cellulitis of face ICD Codes: L03.211 - Cellulitis of face Status: Acute Plan: see above (3) Nausea & vomiting ICD Codes: R11.2 - Nausea with vomiting, unspecified Status: Resolved Plan: - Zofran needed - supportive care (4) UTI (urinary tract infection) ICD Codes: N39.0 - Urinary tract infection, site not specified Plan: UA reviewed consistent with UTI patient on Zosyn which will also cover UTI await cultures results (5) Hyponatremia ICD Codes: E87.1 - Hypo-osmolality and hyponatremia Status: Acute Plan: Na 130 on admission -> (03/24) 134 likely secondary to poor PO intake with encourage PO intake continue IV fluids encourage PO intake recheck in AM (6) Hypothyroidism ICD Codes: E03.9 - Hypothyroidism, unspecified Status: Chronic Plan: - Cont. home meds (7) Hyperlipidemia ICD Codes: E78.5 - Hyperlipidemia, unspecified Status: Chronic Plan: - Cont. home meds (8) Depression ICD Codes: F32.9 - Major depressive disorder, single episode, unspecified Status: Chronic Plan: - Cont. home meds 03/24/17 Patient's daughter Gertrude Lundberg updated over the phone (2) Cellulitis of face ICD Codes: L03.211 - Cellulitis of face Status: Acute Plan: see above (3) Nausea & vomiting ICD Codes: R11.2 - Nausea with vomiting, unspecified Status: Resolved Plan: see above (4) UTI (urinary tract infection) ICD Codes: N39.0 - Urinary tract infection, site not specified Plan: see above (5) Hyponatremia ICD Codes: E87.1 - Hypo-osmolality and hyponatremia Status: Acute Plan: see above (6) Hypothyroidism ICD Codes: E03.9 - Hypothyroidism, unspecified Status: Chronic Plan: see above (7) Hyperlipidemia ICD Codes: E78.5 - Hyperlipidemia, unspecified Status: Chronic Plan: - Cont. home meds (8) Depression ICD Codes: F32.9 - Major depressive disorder, single episode, unspecified Status: Chronic Plan: see above Assessment and Plan Patient examined. Assessment and plan formulated with Katelyn Sainz PA-C. I agree with the above. left parotitis. improved redness/swelling. will cont zosyn today. If progress stops then will likely consult ENT. pain control. Katelyn Sainz Mar 24, 2017 11:06 Stan Riddle MD Mar 24, 2017 14:52
[2017-03-24] MEDS ORDERED: TEMAZEPAM 7.5 MG CAP PO PRN (11:30)
[2017-03-24 11:56] VITALS: BP_SYST 143; BP_SYST 91; BP_DIAS 54; BP_DIAS 60; PULSE 85; RESP 20; TEMP 98.3; O2SAT 95
[2017-03-24] MEDS: PIPERACIL-TAZO 3.375 GM PREMIX 50 ML IV SCH ×2 (12:08→21:19)
[2017-03-24] MEDS: ACETAMINOPHEN/HYDROcodone 325 MG/10 MG TAB PO PRN ×2 (16:46→23:51)
[2017-03-24 17:03] VITALS: BP 118/55; PULSE 75; RESP 20; TEMP 98; O2SAT 98
[2017-03-24 20:30] VITALS: BP 128/86; PULSE 87; RESP 18; TEMP 97.9; O2SAT 95
[2017-03-24] MEDS: PRAVASTATIN SOD 40 MG TAB PO SCH (21:19)
[2017-03-25] VITALS: BP 129/58; PULSE 98; RESP 18; TEMP 98.2; O2SAT 95
[2017-03-25 04:00] VITALS: BP 184/76; PULSE 98; RESP 18; TEMP 98.2; O2SAT 94
[2017-03-25] MEDS: LEVOTHYROXINE SODIUM 100 MCG TAB PO SCH (04:54)
[2017-03-25] MEDS: PIPERACIL-TAZO 3.375 GM PREMIX 50 ML IV SCH ×3 (04:55→20:14)
[2017-03-25] MEDS: SODIUM CHLOR 0.9% 1000 ML INJ 1,000 ML IV SCH ×2 (06:15→19:35)
[2017-03-25 08:15] VITALS: BP 129/72; PULSE 88; RESP 16; TEMP 98.1; O2SAT 95
[2017-03-25] MEDS: SODIUM CHLORIDE 0.9% FLUSH 10 ML FLUSH IV FLUSH SCH ×2 (08:15→20:15)
[2017-03-25] MEDS: PANTOPRAZOLE SOD 20 MG DELAYED RELEASE TAB PO SCH (08:18)
[2017-03-25] MEDS: buPROPion HCL 150 MG SUSTAINED RELEASE TAB PO SCH ×2 (08:18→20:15)
[2017-03-25] MEDS: OXYBUTYNIN CHLORIDE 5 MG TAB PO SCH ×2 (08:18→20:15)
--- NOTE | 2017-03-25 09:44 | HHI.PR ---
Subjective Remarks confused. angry. paranoid. upset about the left forearm iv...says she believes it will cause her to lose the arm. describes frequent urination. Objective Vitals agitated angry. left parotid gland swelling..seems less tender to palpation. and erythema on skin much better. no labored breathing heart reg lung cta abd s/nt ext no pitting left arm iv site. no redness or swelling Vital Signs Date Time Temp Pulse Resp B/P (MAP) Pulse Ox O2 Delivery O2 Flow Rate FiO2 03/25/17 04:00 98.2 98 18 184/76 (112) 94 03/25/17 00:00 98.2 98 18 129/58 (81) 95 03/24/17 20:30 97.9 87 18 128/86 (100) 95 03/24/17 17:03 98.0 75 20 118/55 (76) 98 03/24/17 11:56 98.3 85 20 143/60 (87) 95 Result Diagram: 03/24/17 0715 03/24/17 0715 Imaging Last Impressions Chest X-Ray 03/23/17 0237 Signed Impressions: Service Date/Time: Thursday, March 23, 2017 03:01 - CONCLUSION: No acute disease. Ag Flower MD Neck CT 03/22/17 2113 Signed Impressions: Service Date/Time: Thursday, March 23, 2017 00:32 - CONCLUSION: 1. Abnormal stranding of the subcutaneous fat and skin thickening left neck and parotid region with asymmetric enhancement of the left parotid as compared to the right. The findings would be characteristic of a parotitis and cellulitis. 2. Mildly distended, fluid-filled esophagus is present. 3. Extra-axial left frontal intracranial mass previously characterized as a meningioma. 4. Atherosclerosis. Ag Flower MD A/P Problem List: (1) Parotitis, acute ICD Codes: K11.21 - Acute sialoadenitis Status: Acute Plan: (1) Parotitis, acute ICD Codes: K11.21 - Acute sialoadenitis Status: Acute Plan: Patient had noticed progressively worsening redness and swelling to the left side of the face and neck. Patient has noted some soreness with swallowing but no difficulty swallowing or handling her oral secretions. Patient denies any injury. Family members have noticed increasing swelling significant this evening with associated generalized weakness, nausea and vomiting. - Neck CT reviewed and reveals: 1. Abnormal stranding of the subcutaneous fat and skin thickening left neck and parotid region with asymmetric enhancement of the left parotid as compared to the right. The findings would be characteristic of a parotitis and cellulitis. 2. Mildly distended, fluid-filled esophagus is present. 3. Extra-axial left frontal intracranial mass previously characterized as a meningioma. 4. Atherosclerosis. left parotitis appears clinically improved over past 48hrs with iv zosyn. will monitor. ENT if needed. esbl ecoli positive urine which was ordered by ED...?consider colonization. will pt's agitation unclear if this is symptomatic. no fever or leukocytosis ID consulted Daughter updated yesterday. Will ask RN to call me when family arrives today for update as pt more agitated and paranoid. (2) Cellulitis of face ICD Codes: L03.211 - Cellulitis of face Status: Acute Plan: see above (3) Nausea & vomiting ICD Codes: R11.2 - Nausea with vomiting, unspecified Status: Resolved Plan: - Zofran needed - supportive care (4) UTI (urinary tract infection) ICD Codes: N39.0 - Urinary tract infection, site not specified above (5) Hyponatremia ICD Codes: E87.1 - Hypo-osmolality and hyponatremia Status: Acute Plan: Na 130 on admission -> (03/24) 134 likely secondary to poor PO intake with encourage PO intake continue IV fluids (6) Hypothyroidism ICD Codes: E03.9 - Hypothyroidism, unspecified Status: Chronic Plan: - Cont. home meds (7) Hyperlipidemia ICD Codes: E78.5 - Hyperlipidemia, unspecified Status: Chronic Plan: - Cont. home meds (8) Depression ICD Codes: F32.9 - Major depressive disorder, single episode, unspecified Status: Chronic Plan: - Cont. home meds 03/24/17 Patient's daughter Gertrude Lundberg updated over the phone (2) Cellulitis of face ICD Codes: L03.211 - Cellulitis of face Status: Acute Plan: see above (3) Nausea & vomiting ICD Codes: R11.2 - Nausea with vomiting, unspecified Status: Resolved Plan: see above (4) UTI (urinary tract infection) ICD Codes: N39.0 - Urinary tract infection, site not specified Plan: see above (5) Hyponatremia ICD Codes: E87.1 - Hypo-osmolality and hyponatremia Status: Acute Plan: see above (6) Hypothyroidism ICD Codes: E03.9 - Hypothyroidism, unspecified Status: Chronic Plan: see above (7) Hyperlipidemia ICD Codes: E78.5 - Hyperlipidemia, unspecified Status: Chronic Plan: - Cont. home meds (8) Depression ICD Codes: F32.9 - Major depressive disorder, single episode, unspecified Status: Chronic Plan: see above Stan Riddle MD Mar 25, 2017 09:44
[2017-03-25 12:00] VITALS: BP 174/72; PULSE 95; RESP 18; TEMP 98.3; O2SAT 96
[2017-03-25] MEDS: ACETAMINOPHEN/HYDROcodone 325 MG/10 MG TAB PO PRN ×2 (12:15→20:15)
[2017-03-25] MEDS: PRAVASTATIN SOD 40 MG TAB PO SCH (20:15)
[2017-03-25 21:00] VITALS: BP 130/80; PULSE 80; RESP 20; TEMP 98.8; O2SAT 96
[2017-03-26 00:30] VITALS: BP 128/75; PULSE 76; RESP 19; TEMP 97.6; O2SAT 97
[2017-03-26 04:45] VITALS: BP 150/79; PULSE 90; RESP 18; TEMP 98; O2SAT 98
[2017-03-26] MEDS: PIPERACIL-TAZO 3.375 GM PREMIX 50 ML IV SCH ×3 (05:15→20:58)
[2017-03-26] MEDS: LEVOTHYROXINE SODIUM 100 MCG TAB PO SCH (05:15)
[2017-03-26] MEDS: ACETAMINOPHEN/HYDROcodone 325 MG/10 MG TAB PO PRN ×3 (05:16→20:57)
[2017-03-26] MEDS: SODIUM CHLOR 0.9% 1000 ML INJ 1,000 ML IV SCH (08:31)
[2017-03-26] MEDS: SODIUM CHLORIDE 0.9% FLUSH 10 ML FLUSH IV FLUSH SCH ×2 (08:31→20:55)
[2017-03-26] MEDS: buPROPion HCL 150 MG SUSTAINED RELEASE TAB PO SCH ×2 (08:40→20:56)
[2017-03-26] MEDS: OXYBUTYNIN CHLORIDE 5 MG TAB PO SCH ×2 (08:41→20:57)
[2017-03-26] MEDS: PANTOPRAZOLE SOD 20 MG DELAYED RELEASE TAB PO SCH (08:41)
[2017-03-26 08:57] VITALS: BP 180/74; PULSE 19; RESP 19; TEMP 98.5; O2SAT 96
[2017-03-26 10:48] LABS: AUTOMATED NEUTROPHIL # 4.5 TH/MM3 (1.8-7.7); BASOPHIL # 0.1 TH/MM3 (0-0.2); BASOPHIL % 0.8 % (0.0-2.0); EOSINOPHIL # 0.2 TH/MM3 (0-0.4); EOSINOPHIL % 3.3 % (0.0-4.0); HEMATOCRIT 34.1 % (35.0-46.0); HEMO FLAGS DIFF FINAL; LYMPH % 19.9 % (9.0-44.0); LYMPHOCYTE # 1.3 TH/MM3 (1.0-4.8); MEAN CELL VOLUME 81.9 FL (80.0-100.0); MONO % 7.1 % (0.0-8.0); NEUT % 68.9 % (16.0-70.0); PLATELET COUNT 175 TH/MM3 (150-450); RED BLOOD COUNT 4.17 MIL/MM3 (4.00-5.30); RED CELL DISTRIBUTION WIDTH 15.3 % (11.6-17.2); WHITE BLOOD COUNT 6.5 TH/MM3 (4.0-11.0)
[2017-03-26 11:09] LABS: BICARBONATE 26.3 MEQ/L (21.0-32.0); POTASSIUM 3.5 MEQ/L (3.5-5.1)
--- NOTE | 2017-03-26 11:14 | HHI.PR ---
Subjective Remarks more oriented today and less agitated Objective Vitals left parotid tenderness and swelling much better but parotid still palpable. overlying skin redness better right forearm iv site. some swelling proximally..wrapped Vital Signs Date Time Temp Pulse Resp B/P (MAP) Pulse Ox O2 Delivery O2 Flow Rate FiO2 03/26/17 08:57 98.5 19 19 180/74 (109) 96 03/26/17 06:31 18 03/26/17 04:45 98.0 90 18 150/79 (102) 98 03/26/17 00:30 97.6 76 19 128/75 (92) 97 03/25/17 21:00 98.8 80 20 130/80 (97) 96 03/25/17 12:00 98.3 95 18 174/72 (106) 96 Result Diagram: 03/26/17 0840 03/26/17 0840 Imaging Last Impressions Chest X-Ray 03/23/17 0237 Signed Impressions: Service Date/Time: Thursday, March 23, 2017 03:01 - CONCLUSION: No acute disease. Ag Flower MD Neck CT 03/22/17 2335 Signed Impressions: Service Date/Time: Thursday, March 23, 2017 00:32 - CONCLUSION: 1. Abnormal stranding of the subcutaneous fat and skin thickening left neck and parotid region with asymmetric enhancement of the left parotid as compared to the right. The findings would be characteristic of a parotitis and cellulitis. 2. Mildly distended, fluid-filled esophagus is present. 3. Extra-axial left frontal intracranial mass previously characterized as a meningioma. 4. Atherosclerosis. Ag Flower MD A/P Problem List: (1) Parotitis, acute ICD Codes: K11.21 - Acute sialoadenitis Status: Acute Plan: (1) Parotitis, acute ICD Codes: K11.21 - Acute sialoadenitis Status: Acute Plan: Patient had noticed progressively worsening redness and swelling to the left side of the face and neck. Patient has noted some soreness with swallowing but no difficulty swallowing or handling her oral secretions. Patient denies any injury. Family members have noticed increasing swelling significant this evening with associated generalized weakness, nausea and vomiting. - Neck CT reviewed and reveals: 1. Abnormal stranding of the subcutaneous fat and skin thickening left neck and parotid region with asymmetric enhancement of the left parotid as compared to the right. The findings would be characteristic of a parotitis and cellulitis. 2. Mildly distended, fluid-filled esophagus is present. 3. Extra-axial left frontal intracranial mass previously characterized as a meningioma. 4. Atherosclerosis. left parotitis appears clinically improved over past 48hrs with iv zosyn. will monitor. ENT if needed. esbl ecoli positive urine which was ordered by ED...?consider colonization. with pt's agitation unclear if this is symptomatic. no fever or leukocytosis...ID consulted for opinion. Daughter updated yesterday. plan will be for d/c home tomorrow if stable..... (2) Cellulitis of face ICD Codes: L03.211 - Cellulitis of face Status: Acute Plan: see above (3) Nausea & vomiting ICD Codes: R11.2 - Nausea with vomiting, unspecified Status: Resolved Plan: - Zofran needed - supportive care (4) UTI (urinary tract infection) ICD Codes: N39.0 - Urinary tract infection, site not specified above (5) Hyponatremia ICD Codes: E87.1 - Hypo-osmolality and hyponatremia Status: Acute Plan: Na 130 on admission -> (03/24) 134 likely secondary to poor PO intake with encourage PO intake continue IV fluids (6) Hypothyroidism ICD Codes: E03.9 - Hypothyroidism, unspecified Status: Chronic Plan: - Cont. home meds (7) Hyperlipidemia ICD Codes: E78.5 - Hyperlipidemia, unspecified Status: Chronic Plan: - Cont. home meds (8) Depression ICD Codes: F32.9 - Major depressive disorder, single episode, unspecified Status: Chronic Plan: - Cont. home meds (2) Cellulitis of face ICD Codes: L03.211 - Cellulitis of face Status: Acute Plan: see above (3) Nausea & vomiting ICD Codes: R11.2 - Nausea with vomiting, unspecified Status: Resolved Plan: see above (4) UTI (urinary tract infection) ICD Codes: N39.0 - Urinary tract infection, site not specified Plan: see above (5) Hyponatremia ICD Codes: E87.1 - Hypo-osmolality and hyponatremia Status: Acute Plan: see above (6) Hypothyroidism ICD Codes: E03.9 - Hypothyroidism, unspecified Status: Chronic Plan: see above (7) Hyperlipidemia ICD Codes: E78.5 - Hyperlipidemia, unspecified Status: Chronic Plan: - Cont. home meds (8) Depression ICD Codes: F32.9 - Major depressive disorder, single episode, unspecified Status: Chronic Plan: see above Stan Riddle MD Mar 26, 2017 11:14
[2017-03-26] MEDS ORDERED: methylPREDNISolone SOD SUCC 125 MG/2 ML VIAL IV PUSH ONE (11:15)
[2017-03-26 12:48] VITALS: BP 180/70; PULSE 88; RESP 18; TEMP 97.9; O2SAT 98
--- NOTE | 2017-03-26 16:34 | HHI.PR ---
Addendum to Inpatient Note Additional Information Pt seen examined labs reviewed dw RN full note to follow Celia Chaney MD Mar 26, 2017 16:34
[2017-03-26 20:30] VITALS: BP 132/80; PULSE 80; RESP 18; TEMP 98.8; O2SAT 98
[2017-03-26] MEDS: PRAVASTATIN SOD 40 MG TAB PO SCH (20:57)
--- NOTE | 2017-03-26 22:34 | PD.ID.CON ---
History of Present Illness Service ID Consult Requested By Dr Riddle Reason for Consult parotitis , ESBL+ org in urine Primary Care Physician Paula Garrido MD Diagnoses: History of Present Illness 89 yo femela with dementia, quite confused presented to the hospital with chief complaint of painful L cheek lump On presentation afebrile, nl WBC UA was done and has pyuria of 28 , urine clx positive with ESBL + E.coli Review of Systems ROS Limitations: Poor Historian Past Family Social History Allergies: Coded Allergies: asparagus (Unverified Allergy, Severe, sob, 03/22/17) elizalde pod (Unverified Allergy, Severe, sob, 03/22/17) duloxetine (Unverified Allergy, Unknown, 03/22/17) rivaroxaban (Unverified Allergy, Unknown, 03/22/17) trazodone (Unverified Allergy, Unknown, 03/22/17) Past Medical History Hyperlipidemia Hypothyroidism IBS Depression Anxiety Fibromyalgia DDD Osteoarthritis RLS Past Surgical History Appendectomy Cholecystectomy Rectocele repair Left shoulder fracture repair BEATRIS with BSO Cervical spine nerve block Active Ordered Medications Medications where reviewed in EMR Antibiotics Include: zosyn Family History reviewed Non-Contributory. Social History h/o Tobacco. No ETOH. No Illicit Drugs. Physical Exam Vital Signs Vital Signs Date Time Temp Pulse Resp B/P (MAP) Pulse Ox O2 Delivery O2 Flow Rate FiO2 03/26/17 12:48 97.9 88 18 180/70 (106) 98 03/26/17 08:57 98.5 19 19 180/74 (109) 96 03/26/17 06:31 18 03/26/17 04:45 98.0 90 18 150/79 (102) 98 03/26/17 00:30 97.6 76 19 128/75 (92) 97 Physical Exam CONSTITUTIONAL/GENERAL: This is an adequately nourished patient, in no apparent distress. TUBES/LINES/DRAINS: SKIN: No jaundice, rashes, or lesions. . Skin temperature appropriate. Not diaphoretic. HEAD: Atraumatic. Normocephalic. EYES: Pupils equal and round and reactive. Extraocular motions intact. No scleral icterus. No injection or drainage. Fundi not examined. ENT: Hearing grossly normal. Nose without bleeding or purulent drainage. Throat without visible erythema, exudates, masses, or lesions. Pt has a 5 cm lump on L parotid area, its mildly tender, non fluctuant NECK: Trachea midline. Supple, nontender. CARDIOVASCULAR: Regular rate and rhythm without murmurs, gallops, or rubs. No JVD. Peripheral pulses symmetric. RESPIRATORY/CHEST: Symmetric, unlabored respirations. Clear to auscultation. Breath sounds equal bilaterally. No wheezes, rales, or rhonchi. GASTROINTESTINAL: Abdomen soft, non-tender, nondistended. No hepato-splenomegaly , or palpable masses. No guarding. Bowel sounds present. GENITOURINARY: Without palpable bladder distension MUSCULOSKELETAL: Extremities without clubbing, cyanosis, or edema. No joint tenderness or effusion noted. No calf tenderness. No mottling or clubbing. LYMPHATICS: No palpable cervical or supraclavicular adenopathy. NEUROLOGICAL: Awake and alert. Motor and sensory grossly within normal limits. Follows commands. COnfused Moves all extremities. PSYCHIATRIC: No obvious anxiety/depression. no apparent hallucinations or other psychotic thought process. Laboratory Laboratory Tests Test 03/26/17 08:40 White Blood Count 6.5 Red Blood Count 4.17 Hemoglobin 11.3 Hematocrit 34.1 Mean Corpuscular Volume 81.9 Mean Corpuscular Hemoglobin 27.0 Mean Corpuscular Hemoglobin Concent 33.0 Red Cell Distribution Width 15.3 Platelet Count 175 Mean Platelet Volume 8.9 Neutrophils (%) (Auto) 68.9 Lymphocytes (%) (Auto) 19.9 Monocytes (%) (Auto) 7.1 Eosinophils (%) (Auto) 3.3 Basophils (%) (Auto) 0.8 Neutrophils # (Auto) 4.5 Lymphocytes # (Auto) 1.3 Monocytes # (Auto) 0.5 Eosinophils # (Auto) 0.2 Basophils # (Auto) 0.1 CBC Comment DIFF FINAL Differential Comment Blood Urea Nitrogen 3 Creatinine 0.68 Random Glucose 121 Calcium Level 8.4 Sodium Level 138 Potassium Level 3.5 Chloride Level 104 Carbon Dioxide Level 26.3 Anion Gap 8 Estimat Glomerular Filtration Rate 81 Date/Time Source Procedure Growth Status 03/22/17 23:41 Blood Peripheral Aerobic Blood Culture - Preliminary NO GROWTH IN 3 DAYS Resulted 03/22/17 23:41 Blood Peripheral Anaerobic Blood Culture - Preliminary NO GROWTH IN 3 DAYS Resulted 03/23/17 01:30 Urine Catheterized Urine Urine Culture - Final Escherichia Coli Esbl Positive Complete Result Diagram: 03/26/17 0840 03/26/17 0840 Imaging Last Impressions Chest X-Ray 03/23/17 0237 Signed Impressions: Service Date/Time: Thursday, March 23, 2017 03:01 - CONCLUSION: No acute disease. Ag Flower MD Neck CT 03/22/17 2335 Signed Impressions: Service Date/Time: Thursday, March 23, 2017 00:32 - CONCLUSION: 1. Abnormal stranding of the subcutaneous fat and skin thickening left neck and parotid region with asymmetric enhancement of the left parotid as compared to the right. The findings would be characteristic of a parotitis and cellulitis. 2. Mildly distended, fluid-filled esophagus is present. 3. Extra-axial left frontal intracranial mass previously characterized as a meningioma. 4. Atherosclerosis. Ag Flower MD Assessment and Plan Assessment and Plan Acute bacterial L sided parotits, staph including MRSA most commonly involved org ESBL + E .coli UTI - dc zosyn - start Ertapenem - add vancomycin Celia Chaney MD Mar 26, 2017 22:34
[2017-03-26] MEDS ORDERED: Vancomycin Consult Pharmacy 1 EA OTHER SCH (22:45)
[2017-03-26] MEDS ORDERED: ASP: Documented ESBL, MDR A baumannii or P. aeruginosa PRN (22:45)
[2017-03-26] MEDS ORDERED: MISCELLANEOUS PHARMACY INFORMATION XX PRN (22:45)
[2017-03-26] MEDS ORDERED: VANCOMYCIN INJ 2,000 MG in SODIUM CHLORID 0.9% 500 ML INJ 500 ML IV ONE (23:30)
[2017-03-27 00:30] VITALS: BP 125/66; PULSE 88; RESP 19; TEMP 98.8; O2SAT 98
[2017-03-27] MEDS: ACETAMINOPHEN/HYDROcodone 325 MG/10 MG TAB PO PRN ×2 (01:23→21:22)
[2017-03-27] MEDS: ERTAPENEM INJ 1,000 MG in SODIUM CHLORIDE 0.9% INJ 100 ML IV SCH ×2 (01:27→23:57)
[2017-03-27 05:00] VITALS: BP 120/88; PULSE 88; RESP 19; TEMP 98; O2SAT 99
[2017-03-27] MEDS: LEVOTHYROXINE SODIUM 100 MCG TAB PO SCH (05:37)
[2017-03-27] MEDS: SODIUM CHLORIDE 0.9% FLUSH 10 ML FLUSH IV FLUSH SCH ×2 (08:40→21:22)
[2017-03-27] MEDS: buPROPion HCL 150 MG SUSTAINED RELEASE TAB PO SCH ×2 (08:41→21:22)
[2017-03-27] MEDS: OXYBUTYNIN CHLORIDE 5 MG TAB PO SCH ×2 (08:41→21:00)
[2017-03-27] MEDS: PANTOPRAZOLE SOD 20 MG DELAYED RELEASE TAB PO SCH (08:41)
[2017-03-27 08:52] VITALS: BP 148/75
--- NOTE | 2017-03-27 11:54 | HHI.PR ---
Subjective Remarks no new complaints eager for d/c home. Objective Vitals left parotid gland enlarged..but significantly smaller with less tenderness and redness resolved upper ext's ecchymosis heart reg lung cta Vital Signs Date Time Temp Pulse Resp B/P (MAP) Pulse Ox O2 Delivery O2 Flow Rate FiO2 03/27/17 08:52 148/75 (99) 03/27/17 05:00 98.0 88 19 120/88 (99) 99 03/27/17 00:30 98.8 88 19 125/66 (85) 98 03/26/17 20:30 98.8 80 18 132/80 (97) 98 03/26/17 12:48 97.9 88 18 180/70 (106) 98 03/27/17 03/27/17 03/28/17 15:00 23:00 07:00 # Voids 2 # Bowel Movements 1 Result Diagram: 03/26/17 0840 03/26/17 0840 Imaging Last Impressions Chest X-Ray 03/23/17 0237 Signed Impressions: Service Date/Time: Thursday, March 23, 2017 03:01 - CONCLUSION: No acute disease. Ag Flower MD Neck CT 03/22/17 2338 Signed Impressions: Service Date/Time: Thursday, March 23, 2017 00:32 - CONCLUSION: 1. Abnormal stranding of the subcutaneous fat and skin thickening left neck and parotid region with asymmetric enhancement of the left parotid as compared to the right. The findings would be characteristic of a parotitis and cellulitis. 2. Mildly distended, fluid-filled esophagus is present. 3. Extra-axial left frontal intracranial mass previously characterized as a meningioma. 4. Atherosclerosis. Ag Flower MD A/P Problem List: (1) Parotitis, acute ICD Codes: K11.21 - Acute sialoadenitis Status: Acute Plan: (1) Parotitis, acute ICD Codes: K11.21 - Acute sialoadenitis Status: Acute Plan: Patient had noticed progressively worsening redness and swelling to the left side of the face and neck. Patient has noted some soreness with swallowing but no difficulty swallowing or handling her oral secretions. Patient denies any injury. Family members have noticed increasing swelling significant this evening with associated generalized weakness, nausea and vomiting. - Neck CT reviewed and reveals: 1. Abnormal stranding of the subcutaneous fat and skin thickening left neck and parotid region with asymmetric enhancement of the left parotid as compared to the right. The findings would be characteristic of a parotitis and cellulitis. 2. Mildly distended, fluid-filled esophagus is present. 3. Extra-axial left frontal intracranial mass previously characterized as a meningioma. 4. Atherosclerosis. left parotitis appears significantly improved from admission esbl ecoli positive urine which was ordered by ED... ID consulted to guide abx therapy. will plan for d/c once abx regimen decided upon. she will plan for d/c home with c and family. (2) Cellulitis of face ICD Codes: L03.211 - Cellulitis of face Status: Acute Plan: see above (3) Nausea & vomiting ICD Codes: R11.2 - Nausea with vomiting, unspecified Status: Resolved Plan: - Zofran needed - supportive care (4) UTI (urinary tract infection) ICD Codes: N39.0 - Urinary tract infection, site not specified above (5) Hyponatremia ICD Codes: E87.1 - Hypo-osmolality and hyponatremia Status: Acute Plan: Na 130 on admission -> (03/24) 134 likely secondary to poor PO intake with encourage PO intake off ivf. (6) Hypothyroidism ICD Codes: E03.9 - Hypothyroidism, unspecified Status: Chronic Plan: - Cont. home meds (7) Hyperlipidemia ICD Codes: E78.5 - Hyperlipidemia, unspecified Status: Chronic Plan: - Cont. home meds (8) Depression ICD Codes: F32.9 - Major depressive disorder, single episode, unspecified Status: Chronic Plan: - Cont. home meds (2) Cellulitis of face ICD Codes: L03.211 - Cellulitis of face Status: Acute Plan: see above (3) Nausea & vomiting ICD Codes: R11.2 - Nausea with vomiting, unspecified Status: Resolved Plan: see above (4) UTI (urinary tract infection) ICD Codes: N39.0 - Urinary tract infection, site not specified Plan: see above (5) Hyponatremia ICD Codes: E87.1 - Hypo-osmolality and hyponatremia Status: Acute Plan: see above (6) Hypothyroidism ICD Codes: E03.9 - Hypothyroidism, unspecified Status: Chronic Plan: see above (7) Hyperlipidemia ICD Codes: E78.5 - Hyperlipidemia, unspecified Status: Chronic Plan: - Cont. home meds (8) Depression ICD Codes: F32.9 - Major depressive disorder, single episode, unspecified Status: Chronic Plan: see above Stan Riddle MD Mar 27, 2017 11:54
[2017-03-27 21:20] VITALS: BP 155/81; PULSE 115; RESP 20; TEMP 97.7; O2SAT 96
[2017-03-27] MEDS: PRAVASTATIN SOD 40 MG TAB PO SCH (21:22)
[2017-03-28 01:05] VITALS: BP 123/61; PULSE 98; RESP 18; TEMP 97.4; O2SAT 95
[2017-03-28] MEDS ORDERED: VANCOMYCIN INJ 1,500 MG in SODIUM CHLORID 0.9% 500 ML INJ 500 ML IV SCH (02:00)
[2017-03-28 05:05] VITALS: BP 155/73; PULSE 85; RESP 18; TEMP 98.2; O2SAT 97
[2017-03-28] MEDS: LEVOTHYROXINE SODIUM 100 MCG TAB PO SCH (05:43)
[2017-03-28 08:31] VITALS: BP 120/70; PULSE 88; RESP 20; TEMP 98.1; O2SAT 95
[2017-03-28] MEDS: buPROPion HCL 150 MG SUSTAINED RELEASE TAB PO SCH ×2 (08:37→23:05)
[2017-03-28] MEDS: OXYBUTYNIN CHLORIDE 5 MG TAB PO SCH ×2 (08:37→21:00)
[2017-03-28] MEDS: PANTOPRAZOLE SOD 20 MG DELAYED RELEASE TAB PO SCH (08:37)
[2017-03-28] MEDS: SODIUM CHLORIDE 0.9% FLUSH 10 ML FLUSH IV FLUSH SCH ×2 (08:38→21:00)
[2017-03-28] MEDS: ACETAMINOPHEN/HYDROcodone 325 MG/10 MG TAB PO PRN (08:43)
--- NOTE | 2017-03-28 10:51 | HHI.PR ---
Subjective Remarks eager for d/c home. Objective Vitals nad left parotid swelling much improved. mild tenderness abd s/nt ext no pitting. Vital Signs Date Time Temp Pulse Resp B/P (MAP) Pulse Ox O2 Delivery O2 Flow Rate FiO2 03/28/17 08:31 98.1 88 20 120/70 (87) 95 03/28/17 05:05 98.2 85 18 155/73 (100) 97 03/28/17 01:05 97.4 98 18 123/61 (81) 95 03/27/17 21:20 97.7 115 20 155/81 (105) 96 Result Diagram: 03/26/17 0840 03/26/17 0840 Imaging Last Impressions Chest X-Ray 03/23/17 0237 Signed Impressions: Service Date/Time: Thursday, March 23, 2017 03:01 - CONCLUSION: No acute disease. Ag Flower MD Neck CT 03/22/17 2335 Signed Impressions: Service Date/Time: Thursday, March 23, 2017 00:32 - CONCLUSION: 1. Abnormal stranding of the subcutaneous fat and skin thickening left neck and parotid region with asymmetric enhancement of the left parotid as compared to the right. The findings would be characteristic of a parotitis and cellulitis. 2. Mildly distended, fluid-filled esophagus is present. 3. Extra-axial left frontal intracranial mass previously characterized as a meningioma. 4. Atherosclerosis. Ag Flower MD A/P Problem List: (1) Parotitis, acute ICD Codes: K11.21 - Acute sialoadenitis Status: Acute Plan: (1) Parotitis, acute ICD Codes: K11.21 - Acute sialoadenitis Status: Acute Plan: Patient had noticed progressively worsening redness and swelling to the left side of the face and neck. Patient has noted some soreness with swallowing but no difficulty swallowing or handling her oral secretions. Patient denies any injury. Family members have noticed increasing swelling significant this evening with associated generalized weakness, nausea and vomiting. - Neck CT reviewed and reveals: 1. Abnormal stranding of the subcutaneous fat and skin thickening left neck and parotid region with asymmetric enhancement of the left parotid as compared to the right. The findings would be characteristic of a parotitis and cellulitis. 2. Mildly distended, fluid-filled esophagus is present. 3. Extra-axial left frontal intracranial mass previously characterized as a meningioma. 4. Atherosclerosis. left parotitis appears significantly improved from admission esbl ecoli positive urine which was ordered by ED... ID consulted to guide abx therapy. will plan for d/c once abx regimen decided upon. ...discuss with Dr Chaney today. discuss with family. she will plan for d/c home with [facility] and family. (2) Cellulitis of face ICD Codes: L03.211 - Cellulitis of face Status: Acute Plan: see above (3) Nausea & vomiting ICD Codes: R11.2 - Nausea with vomiting, unspecified Status: Resolved Plan: - Zofran needed - supportive care (4) UTI (urinary tract infection) ICD Codes: N39.0 - Urinary tract infection, site not specified above (5) Hyponatremia ICD Codes: E87.1 - Hypo-osmolality and hyponatremia Status: Acute Plan: Na 130 on admission -> (03/24) 134 likely secondary to poor PO intake with encourage PO intake off ivf. (6) Hypothyroidism ICD Codes: E03.9 - Hypothyroidism, unspecified Status: Chronic Plan: - Cont. home meds (7) Hyperlipidemia ICD Codes: E78.5 - Hyperlipidemia, unspecified Status: Chronic Plan: - Cont. home meds (8) Depression ICD Codes: F32.9 - Major depressive disorder, single episode, unspecified Status: Chronic Plan: - Cont. home meds (2) Cellulitis of face ICD Codes: L03.211 - Cellulitis of face Status: Acute Plan: see above (3) Nausea & vomiting ICD Codes: R11.2 - Nausea with vomiting, unspecified Status: Resolved Plan: see above (4) UTI (urinary tract infection) ICD Codes: N39.0 - Urinary tract infection, site not specified Plan: see above (5) Hyponatremia ICD Codes: E87.1 - Hypo-osmolality and hyponatremia Status: Acute Plan: see above (6) Hypothyroidism ICD Codes: E03.9 - Hypothyroidism, unspecified Status: Chronic Plan: see above (7) Hyperlipidemia ICD Codes: E78.5 - Hyperlipidemia, unspecified Status: Chronic Plan: - Cont. home meds (8) Depression ICD Codes: F32.9 - Major depressive disorder, single episode, unspecified Status: Chronic Plan: see above Stan Riddle MD Mar 28, 2017 10:51
[2017-03-28 16:06] VITALS: BP 122/74; PULSE 133; RESP 18; TEMP 98.2; O2SAT 93
--- NOTE | 2017-03-28 20:05 | HHI.IDPN ---
Subjective Subjective Remarks pt is doing OK co some nausea no diarhea no abdominal pain Antibiotics omycin ertapenem Allergies: Coded Allergies: asparagus (Unverified Allergy, Severe, sob, 03/22/17) elizalde pod (Unverified Allergy, Severe, sob, 03/22/17) duloxetine (Unverified Allergy, Unknown, 03/22/17) rivaroxaban (Unverified Allergy, Unknown, 03/22/17) trazodone (Unverified Allergy, Unknown, 03/22/17) Objective . Vital Signs Date Time Temp Pulse Resp B/P (MAP) Pulse Ox O2 Delivery O2 Flow Rate FiO2 03/28/17 16:06 98.2 133 18 122/74 (90) 93 03/28/17 08:31 98.1 88 20 120/70 (87) 95 03/28/17 05:05 98.2 85 18 155/73 (100) 97 03/28/17 01:05 97.4 98 18 123/61 (81) 95 03/27/17 21:20 97.7 115 20 155/81 (105) 96 03/28/17 03/28/17 03/29/17 15:00 23:00 07:00 Intake Total 480 ml Balance 480 ml Intake Oral 480 ml # Voids 1 4 Imaging Last Impressions Chest X-Ray 03/23/17 0237 Signed Impressions: Service Date/Time: Thursday, March 23, 2017 03:01 - CONCLUSION: No acute disease. Ag Flower MD Neck CT 03/22/17 1505 Signed Impressions: Service Date/Time: Thursday, March 23, 2017 00:32 - CONCLUSION: 1. Abnormal stranding of the subcutaneous fat and skin thickening left neck and parotid region with asymmetric enhancement of the left parotid as compared to the right. The findings would be characteristic of a parotitis and cellulitis. 2. Mildly distended, fluid-filled esophagus is present. 3. Extra-axial left frontal intracranial mass previously characterized as a meningioma. 4. Atherosclerosis. Ag Flower MD Physical Exam CONSTITUTIONAL/GENERAL: This is an adequately nourished patient, in no apparent distress. TUBES/LINES/DRAINS: SKIN: No jaundice, rashes, or lesions. . Skin temperature appropriate. Not diaphoretic. EYES: Pupils equal and round and reactive. Extraocular motions intact. No scleral icterus. No injection or drainage. Fundi not examined. ENT: Hearing grossly normal. Nose without bleeding or purulent drainage. Throat without visible erythema, exudates, masses, or lesions. Pt has approx 5 cm firmish lump on L parotid area, non tender, non fluctuant seems slightly smaller NECK: Trachea midline. Supple, nontender. RESPIRATORY/CHEST: Symmetric, unlabored respirations. Clear to auscultation. Breath sounds equal bilaterally. No wheezes, rales, or rhonchi. GASTROINTESTINAL: Abdomen soft, non-tender, nondistended. No hepato-splenomegaly , or palpable masses. No guarding. Bowel sounds present. MUSCULOSKELETAL: Extremities without clubbing, cyanosis, or edema. No joint tenderness or effusion noted. No calf tenderness. No mottling or clubbing. LYMPHATICS: No palpable cervical or supraclavicular adenopathy. NEUROLOGICAL: Awake and alert. Motor and sensory grossly within normal limits. Follows commands. COnfused Moves all extremities. PSYCHIATRIC: calm , cooperative Assessment & Plan Remarks Acute bacterial L sided parotits, staph including MRSA most commonly involved org ESBL + E .coli UTI - cont Ertapenem x 14 days total - zyvox po top complete 10-14 days of treat ment (including vancomycin time) Celia Chaney MD Mar 28, 2017 20:05
[2017-03-28] MEDS ORDERED: EPIN1INJ21 IV PUSH (20:09)
[2017-03-28] MEDS ORDERED: SOLU250I IV PUSH (20:09)
[2017-03-28] MEDS ORDERED: INVA1INJ IV (20:09)
[2017-03-28] MEDS ORDERED: EPIN1INJ21 SQ (20:09)
[2017-03-28] MEDS ORDERED: ZYVO600T PO (20:10)
--- NOTE | 2017-03-28 20:12 | HHI.FF ---
Infusion Therapy Location of Infusion Therapy: [facility] IV Infusion Order Patient Information Patient Weight 72.6 kg Diagnosis: Coded Allergies: asparagus (Unverified Allergy, Severe, sob, 03/22/17) elizalde pod (Unverified Allergy, Severe, sob, 03/22/17) duloxetine (Unverified Allergy, Unknown, 03/22/17) rivaroxaban (Unverified Allergy, Unknown, 03/22/17) trazodone (Unverified Allergy, Unknown, 03/22/17) Administer Medication Ertapenem 1 gram IV q 24 hours Start Treatment: Mar 29, 2017 Stop Treatment: Apr 08, 2017 Additional Information Venous access: Other (midline) Additional Instructions [x] Peripheral flush and dressing changes per protocol [x] Implanted port and central linen room worker: * Implanted port: 10 ml Normal Saline followed by 5 ml Heparin 100 units/ml Heparin flush after each use and monthly to maintain. [] May leave port accessed during therapy. [] May leave peripheral site accessed for duration of therapy. [x] If patient has SOB or respiratory distress, check oxygen saturation. If less than 90% or clinical signs of respiratory distress, administer oxygen at 2 L/min. via nasal cannula and notify physician. [x] Anaphylaxis/Reaction orders: * Stop infusion. * Keep IV line open with saline flush. * Notify physician. * Monitor vital signs every 15 minutes until symptoms resolve. * Check Oxygen saturation; Oxygen at 2 L/min. via nasal cannula if less than 90% or clinical signs of respiratory distress. * Administer diphenhydramine (Benadryl) 25 mg IV STAT, (unless patient has received as pre-med). May repeat once, if necessary. * Solu-Cortef 250 mg IVP over 30-60 seconds, use 100 mg vials for each dissolution. * Epinephrine (1mg/1 ml) 0.3 mg subcutaneously or IVP now with any signs of respiratory distress. * Check with physician for new additional pre-med orders if patient is re- challenged or re-treated. [x] May remove PICC line when treatment complete, after confirming with Physician. [x] If the patient is admitted to the hospital, the ED, or transferred via [facility] , complete transfer form including medication reconciliation order sheet. Laboratory Tests Weekly Labs: BMP, CBC w/diff Celia Chaney MD Mar 28, 2017 20:12
[2017-03-28 20:17] VITALS: BP 132/64; PULSE 88; RESP 18; TEMP 98; O2SAT 99
[2017-03-28] MEDS: LINEZOLID 600 MG TAB PO SCH (23:06)
[2017-03-28] MEDS: PRAVASTATIN SOD 40 MG TAB PO SCH (23:10)
[2017-03-28] MEDS: ONDANSETRON HCL 4 MG/2 ML VIAL IVP PRN (23:23)
[2017-03-29] MEDS: ERTAPENEM INJ 1,000 MG in SODIUM CHLORIDE 0.9% INJ 100 ML IV SCH ×2 (00:37→18:33)
[2017-03-29 00:38] VITALS: BP 149/72; PULSE 81; RESP 18; TEMP 98.3; O2SAT 95
[2017-03-29 04:56] VITALS: BP 127/50; PULSE 84; RESP 18; TEMP 98.1; O2SAT 94
[2017-03-29] MEDS: LEVOTHYROXINE SODIUM 100 MCG TAB PO SCH (06:39)
[2017-03-29 08:00] VITALS: BP 124/57; PULSE 83; RESP 21; TEMP 98; O2SAT 96
[2017-03-29] MEDS: LINEZOLID 600 MG TAB PO SCH ×2 (08:00→21:06)
[2017-03-29] MEDS: buPROPion HCL 150 MG SUSTAINED RELEASE TAB PO SCH ×2 (09:00→21:05)
--- NOTE | 2017-03-29 09:19 | HHI.PR ---
Subjective Remarks complaining about breakfast. to hard. she wants oatmeal yesterday she was sick on her stomach and vomited. discussed with family and they are ok with picc and home iv abx. Objective Vitals heart reg lung cta abd s/nt ext no pitting heent..left parotid gland only minimally swollen at this point. Vital Signs Date Time Temp Pulse Resp B/P (MAP) Pulse Ox O2 Delivery O2 Flow Rate FiO2 03/29/17 08:00 98.0 83 21 124/57 (79) 96 Manual Cuff/Auscultation 03/29/17 04:56 98.1 84 18 127/50 (75) 94 03/29/17 00:38 98.3 81 18 149/72 (97) 95 03/28/17 20:17 98.0 88 18 132/64 (86) 99 03/28/17 16:06 98.2 133 18 122/74 (90) 93 Result Diagram: 03/26/17 0840 03/26/17 0840 Imaging Last Impressions Chest X-Ray 03/23/17 0237 Signed Impressions: Service Date/Time: Thursday, March 23, 2017 03:01 - CONCLUSION: No acute disease. Ag Flower MD Neck CT 03/22/17 0574 Signed Impressions: Service Date/Time: Thursday, March 23, 2017 00:32 - CONCLUSION: 1. Abnormal stranding of the subcutaneous fat and skin thickening left neck and parotid region with asymmetric enhancement of the left parotid as compared to the right. The findings would be characteristic of a parotitis and cellulitis. 2. Mildly distended, fluid-filled esophagus is present. 3. Extra-axial left frontal intracranial mass previously characterized as a meningioma. 4. Atherosclerosis. Ag Flower MD A/P Problem List: (1) Parotitis, acute ICD Codes: K11.21 - Acute sialoadenitis Status: Acute Plan: (1) Parotitis, acute ICD Codes: K11.21 - Acute sialoadenitis Status: Acute Plan: Patient had noticed progressively worsening redness and swelling to the left side of the face and neck. Patient has noted some soreness with swallowing but no difficulty swallowing or handling her oral secretions. Patient denies any injury. Family members have noticed increasing swelling significant this evening with associated generalized weakness, nausea and vomiting. - Neck CT reviewed and reveals: 1. Abnormal stranding of the subcutaneous fat and skin thickening left neck and parotid region with asymmetric enhancement of the left parotid as compared to the right. The findings would be characteristic of a parotitis and cellulitis. 2. Mildly distended, fluid-filled esophagus is present. 3. Extra-axial left frontal intracranial mass previously characterized as a meningioma. 4. Atherosclerosis. left parotitis appears significantly improved from admission esbl ecoli positive urine which was ordered by ED... ID consulted to guide abx therapy. discussed with Dr Chaney..recommended po zyvoxx and 2 weeks iv invanz awaiting picc line. arrange [facility] pt has upset stomach yesterday and vomiting...will need to assure tolerating food before d/c home...?later today vs tomorrow. w (2) Cellulitis of face ICD Codes: L03.211 - Cellulitis of face Status: Acute Plan: see above (3) Nausea & vomiting ICD Codes: R11.2 - Nausea with vomiting, unspecified Status: Resolved Plan: - Zofran needed - supportive care (4) UTI (urinary tract infection) ICD Codes: N39.0 - Urinary tract infection, site not specified above (5) Hyponatremia ICD Codes: E87.1 - Hypo-osmolality and hyponatremia Status: Acute Plan: Na 130 on admission -> (03/24) 134 likely secondary to poor PO intake with encourage PO intake off ivf. (6) Hypothyroidism ICD Codes: E03.9 - Hypothyroidism, unspecified Status: Chronic Plan: - Cont. home meds (7) Hyperlipidemia ICD Codes: E78.5 - Hyperlipidemia, unspecified Status: Chronic Plan: - Cont. home meds (8) Depression ICD Codes: F32.9 - Major depressive disorder, single episode, unspecified Status: Chronic Plan: - Cont. home meds (2) Cellulitis of face ICD Codes: L03.211 - Cellulitis of face Status: Acute Plan: see above (3) Nausea & vomiting ICD Codes: R11.2 - Nausea with vomiting, unspecified Status: Resolved Plan: see above (4) UTI (urinary tract infection) ICD Codes: N39.0 - Urinary tract infection, site not specified Plan: see above (5) Hyponatremia ICD Codes: E87.1 - Hypo-osmolality and hyponatremia Status: Acute Plan: see above (6) Hypothyroidism ICD Codes: E03.9 - Hypothyroidism, unspecified Status: Chronic Plan: see above (7) Hyperlipidemia ICD Codes: E78.5 - Hyperlipidemia, unspecified Status: Chronic Plan: - Cont. home meds (8) Depression ICD Codes: F32.9 - Major depressive disorder, single episode, unspecified Status: Chronic Plan: see above Stan Riddle MD Mar 29, 2017 09:19
--- NOTE | 2017-03-29 09:21 | HHI.FF ---
Face to Face Verification Diagnosis: (1) Escherichia coli urinary tract infection (2) Parotitis, acute (3) Cellulitis of face (4) Nausea & vomiting (5) Hypothyroidism (6) Hyperlipidemia (7) Depression Physical Therapy Order: Evaluate and Treat, Improve ambulation Home Health Nursing Order: Medical education Signs/symptoms of disease process Medication education-adverse effect Wound care and dressing changes Nursing assessment with vital signs IV medication administration I have seen patient Rachel Colmenares on 03/29/17. My clinical findings support the need for the requested home health care services because: Limited ability to care for self I certify that my clinical findings support that this patient is homebound because: Impaired cognitive ability/safety Stan Riddle MD Mar 29, 2017 09:21
[2017-03-29 12:00] VITALS: BP 122/56; PULSE 82; RESP 21; TEMP 98.1; O2SAT 96
[2017-03-29] MEDS: ACETAMINOPHEN/HYDROcodone 325 MG/5 MG TAB PO PRN ×2 (13:20→21:06)
[2017-03-29] MEDS: OXYBUTYNIN CHLORIDE 5 MG TAB PO SCH ×2 (13:21→21:08)
[2017-03-29 16:00] VITALS: BP 133/61; PULSE 85; RESP 22; TEMP 98.1; O2SAT 95
[2017-03-29 20:00] VITALS: BP 141/84; PULSE 61; RESP 18; TEMP 98; O2SAT 99
[2017-03-29] MEDS: SODIUM CHLORIDE 0.9% FLUSH 10 ML FLUSH IV FLUSH SCH (21:00)
[2017-03-29] MEDS: PRAVASTATIN SOD 40 MG TAB PO SCH (21:08)
[2017-03-29] MEDS: ONDANSETRON HCL 4 MG/2 ML VIAL IVP PRN (21:23)
[2017-03-30] VITALS: BP 143/65; PULSE 81; RESP 18; TEMP 97.3; O2SAT 94
[2017-03-30] MEDS ORDERED: PHARMACY ORDERED LAB ONE (01:45)
[2017-03-30 04:00] VITALS: BP 102/68; PULSE 74; RESP 18; TEMP 98; O2SAT 92
[2017-03-30] MEDS: LEVOTHYROXINE SODIUM 100 MCG TAB PO SCH (06:06)
[2017-03-30 08:00] VITALS: BP 126/60; PULSE 78; RESP 22; TEMP 97.5; O2SAT 95
[2017-03-30] MEDS: LINEZOLID 600 MG TAB PO SCH (08:00)
[2017-03-30] MEDS: OXYBUTYNIN CHLORIDE 5 MG TAB PO SCH (09:00)
[2017-03-30] MEDS: buPROPion HCL 150 MG SUSTAINED RELEASE TAB PO SCH (09:00)
[2017-03-30] MEDS ORDERED: OMEP20TA93 PO (09:48)
--- NOTE | 2017-03-30 09:52 | HHI.DS ---
Discharge Summary Admission Date Mar 23, 2017 at 02:48 Discharge Date: Mar 30, 2017 Admitting Diagnosis Facial cellulitis L parotitis (1) Parotitis, acute Diagnosis: Principal ICD Codes: K11.21 - Acute sialoadenitis Status: Acute (2) Cellulitis of face Diagnosis: Principal ICD Codes: L03.211 - Cellulitis of face Status: Acute (3) Nausea & vomiting Diagnosis: Principal ICD Codes: R11.2 - Nausea with vomiting, unspecified Status: Resolved (4) UTI (urinary tract infection) Diagnosis: Principal ICD Codes: N39.0 - Urinary tract infection, site not specified (5) Hyponatremia Diagnosis: Secondary ICD Codes: E87.1 - Hypo-osmolality and hyponatremia Status: Acute (6) Hypothyroidism Diagnosis: Secondary ICD Codes: E03.9 - Hypothyroidism, unspecified Status: Chronic (7) Hyperlipidemia ICD Codes: E78.5 - Hyperlipidemia, unspecified Status: Chronic (8) Depression Diagnosis: Secondary ICD Codes: F32.9 - Major depressive disorder, single episode, unspecified Status: Chronic Brief History Ms. Colmenares is a pleasant 89 y/o female with hypothyroidism, hyperlipidemia, RLS, Fibromyalgia DDD and depression/anxiety. Patient presents to the hospital due to progressively worsening redness and swelling to the left side of the face and neck, patient unable to tell exactly how long this has been present. Patient has noted some soreness with swallowing but no difficulty swallowing or handling her oral secretions. Patient denies any injury. Family members have noticed increasing swelling significant on the evening of 03/22. Patient lives by herself. Family has been checking on her frequently. This evening symptoms also associated with increased generalized weakness, nausea and vomiting. Patient denies fevers, chills, chest pain, shortness of breath, stridor, hoarseness, abdominal pain, flank pain, dysuria, increased urinary frequency urgency. CBC/BMP: 03/26/17 0840 03/26/17 0840 Hospital Course (1) Parotitis, acute Patient had noticed progressively worsening redness and swelling to the left side of the face and neck. Patient has noted some soreness with swallowing but no difficulty swallowing or handling her oral secretions. Patient denies any injury. Family members have noticed increasing swelling significant this evening with associated generalized weakness, nausea and vomiting. - Neck CT reviewed and reveals: 1. Abnormal stranding of the subcutaneous fat and skin thickening left neck and parotid region with asymmetric enhancement of the left parotid as compared to the right. The findings would be characteristic of a parotitis and cellulitis. 2. Mildly distended, fluid-filled esophagus is present. 3. Extra-axial left frontal intracranial mass previously characterized as a meningioma. 4. Atherosclerosis. left parotitis appears significantly improved from admission esbl ecoli positive urine which was ordered by ED... ID consulted to guide abx therapy. discussed with Dr Chaney..recommended po zyvoxx and 2 weeks iv invanz picc midline placed on 03/29...HHC/PT arranged. f/u pcp Pt did have upset stomach over past few days but seems ok now and tolerating food. no vomiting or diarrhea that I am aware of. (2) Cellulitis of face ICD Codes: L03.211 - Cellulitis of face Status: Acute Plan: see above (3) Nausea & vomiting ICD Codes: R11.2 - Nausea with vomiting, unspecified Status: Resolved Plan: - Zofran needed - supportive care (4) UTI (urinary tract infection) ICD Codes: N39.0 - Urinary tract infection, site not specified above (5) Hyponatremia ICD Codes: E87.1 - Hypo-osmolality and hyponatremia Status: Acute Plan: Na 130 on admission -> (03/24) 134 likely secondary to poor PO intake with encourage PO intake off ivf. (6) Hypothyroidism ICD Codes: E03.9 - Hypothyroidism, unspecified Status: Chronic Plan: - Cont. home meds (7) Hyperlipidemia ICD Codes: E78.5 - Hyperlipidemia, unspecified Status: Chronic Plan: - Cont. home meds (8) Depression ICD Codes: F32.9 - Major depressive disorder, single episode, unspecified Status: Chronic Plan: - Cont. home meds Pt Condition on Discharge: Stable Discharge Disposition: Disch w/ Home Health Serv Discharge Instructions DIET: Follow Instructions for: As Tolerated, No Restrictions Speech Therapy-Diet Recommends: Mechanical Soft Activities you can perform: Regular-No Restrictions Follow up Referrals: PCP Follow-up - 1 Week with duarte suárez New Medications: Epinephrine Inj (Epinephrine Inj) 1 Mg/Ml (1 Ml) Inj 0.3 MG IV PUSH ONCE PRN for ALLERGIC REACTION, #1 VIAL Epinephrine Inj (Epinephrine Inj) 1 Mg/Ml (1 Ml) Inj 0.3 MG SQ ONCE PRN for ALLERGIC REACTION, #1 VIAL Give with any signs of respiratory distress. Ertapenem Inj (Invanz Inj) 1 Gm Addvial 1 GM IV Q24H for Infection for 10 Days, INJECTION 0 Refills ADMINISTER IN 100ML NS Hydrocortisone Inj (Solu-Cortef Inj) 250 Mg/2 Ml Inj 250 MG IV PUSH ONCE PRN for ALLERGIC REACTION, #1 VIAL 0 Refills Give over 30-60 seconds. Linezolid (Zyvox) 600 Mg Tab 600 MG PO Q12H for Infection for 7 Days, #14 TAB 0 Refills Changed Medications: Omeprazole (Omeprazole) 20 Mg Tab 20 MG PO BID for heartburn, #60 TAB 0 Refills (Changed from: DAILY; 30) Continued Medications: Bupropion HCl ER 24 HR (Bupropion HCl ER 24 HR) 300 Mg Tab 300 MG PO DAILY for Control Depression, TAB 0 Refills Furosemide (Lasix) 20 Mg Tab 20 MG PO DAILY PRN for swelling, #30 TAB 0 Refills Levothyroxine (Levothyroxine) 100 Mcg Tab 100 MCG PO DAILY for Thyroid, #30 TAB 0 Refills Lovastatin (Lovastatin) 40 Mg Tab 40 MG PO HS for Cholesterol Management, #30 TAB 0 Refills Multivitamin with Minerals (Multiple Vitamin) 1 Each Tablet Oxybutynin (Ditropan) 5 Mg Tab 5 MG PO Q12HR for Urinary Symptom Managemen, #60 TAB 0 Refills Oxycodone HCl (Oxycodone Hydrochloride) 5 Mg Cap 2 TAB PO Q6HR Potassium Chloride ER (K-Tab) 8 Meq Tab 8 MEQ PO DAILY for Electrolyte Replacement, #30 TAB 0 Refills Pramipexole ER 24 HR (Pramipexole ER 24 HR) 1.5 Mg Tab 1.5 MG PO DAILY for restless leg syndrome, #30 TAB 0 Refills Stan Riddle MD Mar 30, 2017 09:52
[2017-03-30 12:00] VITALS: BP 126/58; PULSE 82; RESP 22; TEMP 97.5; O2SAT 95
[2017-03-30] MEDS: ERTAPENEM INJ 1,000 MG in SODIUM CHLORIDE 0.9% INJ 100 ML IV SCH (13:41)
== END 2017-03-30 16:00 | disposition home health service (06) | DRG 155 ==
LOC: NEPC 22:32 → NEDA 03-23 02:48 → NEPHCDU 03-23 03:38 → N05B 03-23 16:21
PROVIDERS: ADMIT Hospitalist; ATTEND Hospitalist
PROC: 05H633Z Insertion of Infusion Device into Left Subclavian Vein, Percutaneous Approach (ICD-10-PCS; principal; 2017-03-29)
PROC: B547ZZA Ultrasonography of Left Subclavian Vein, Guidance (ICD-10-PCS; 2017-03-29)
DX: K11.21 Acute sialoadenitis (principal); L03.211 Cellulitis of face; N39.0 Urinary tract infection, site not specified; E87.1 Hypo-osmolality and hyponatremia; B96.20 Unspecified Escherichia coli [E. coli] as the cause of diseases classified elsewhere; Z16.12 Extended spectrum beta lactamase (ESBL) resistance; E03.9 Hypothyroidism, unspecified; E78.5 Hyperlipidemia, unspecified; F32.9 Major depressive disorder, single episode, unspecified; R41.0 Disorientation, unspecified; M79.7 Fibromyalgia; G25.81 Restless legs syndrome; M50.90 Cervical disc disorder, unspecified, unspecified cervical region; D32.0 Benign neoplasm of cerebral meninges; R11.2 Nausea with vomiting, unspecified; Z87.891 Personal history of nicotine dependence
CPT/HCPCS: 70491; 71010; 80048; 81001; 85025; 87040; 87077; 87086; 87186; 93005; 96374; 96375; J1335; J1885; J2405; J2543; J2930; J3370; J7030; J7040; Q9967

== ENCOUNTER 2017-06-05 17:29 | Emergency (ER) | payer MEDICARE ==
[~2017-06-05] VITALS: Ht 154.9 cm; Wt 70.0 kg
[~2017-06-05 17:29] MED LIST changes: -BISA10R PR; +BUPR300T PO; -CITA-48 PO; -DOCU1CAP39 PO; -E.E.200S PO; -ENOX30P SQ; +EPIN1INJ21 IV PUSH; +EPIN1INJ21 SQ; -FLEEENE3 PR; +FURO1TAB62 PO; -GABA300 PO; +INVA1INJ IV; -LEVO100T4 PO; +LEVO100T5 PO; -LEVO125T48 PO; -LOMO2.5T PO; -LORT5TAB PO; +LOVA40TA PO; -MAGN30S PO; -MAGN400 PO; -MEVA40TA PO; -MEVA40TA6 PO; -NIFE1TAB85 PO; +NO ITAB; +OMEP20TA93 PO; -ONDAN4 PO; +OXYB5TAB8 PO; +OXYC1CAP2 PO; +POTA1TAB77 PO; -PRIL20CA PO; -PRIL40CA PO; +SOLU250I IV PUSH; -TRAM50 PO; -VITA200017 PO; +ZYVO600T PO; -[UNRECOGNIZED DRUG - CODE] PO
[2017-06-05 17:34] VITALS: BP 118/70; PULSE 84; RESP 16; TEMP 98.4; O2SAT 97
--- NOTE | 2017-06-05 18:22 | RADRPT ---
EXAM DATE/TIME: 06/05/2017 18:08 [place] COMPARISON: INDICATIONS : Dizziness and dyspnea for four days. MEDICAL HISTORY : Asthma. Hypertension. Cardiovascular disease. SURGICAL HISTORY : Appendectomy. Cholecystectomy.Hysterectomy. ENCOUNTER: Initial ACUITY: 4 - 6 days PAIN SCORE: 0/10 LOCATION: Bilateral chest FINDINGS: Minimal airspace disease at the left lung similar to prior exam. Cardiomediastinal contours are withi n normal limits. Bony thorax is intact. CONCLUSION: 1. Minimal left lung base atelectasis/scarring. 2. No acute abnormality or significant interval change. Asael Terrazas MD on June 05, 2017 at 18:20 Board Certified Radiologist. This report was verified electronically.
--- NOTE | 2017-06-05 18:47 | PD ---
HPI Chief Complaint: Cardiac Complaint Time Seen by Provider: 18:30 Travel History International Travel<30 days: No Contact w/Intl Traveler<30days: No Traveled to known affect area: No History of Present Illness HPI This is an 89-year-old female who was sent here from [facility] urgent care for evaluation of dizziness. The past 1.5 weeks she has been experiencing intermittent dizziness which she describes as a lightheadedness that seems to radiate from her feet to her head. Symptoms come on spontaneously with no aggravating or alleviating factors. Currently asymptomatic. She was seen at [facility] clinic today where her heart rate was noted to be as high as the 160s intermittently according to her notes. An EKG was concerning for possible atrial fibrillation. She was sent here for further evaluation. She denies any history of atrial fibrillation. She denies any chest pain, shortness of breath, nausea or vomiting, palpitations, headache, blurred vision , abdominal pain, diarrhea. She has no other complaints at this time. Her primary care physician is Dr. Garrido. [facility] Past Medical History Hx Anticoagulant Therapy: No Blood Disorders: No Anxiety: Yes Depression: Yes Cancer: No Cardiovascular Problems: Yes High Cholesterol: Yes Diabetes: No Endocrine: Yes Gastrointestinal Disorders: Yes (Appy/ choly) Glaucoma: No Gout: Yes Genitourinary: No Hepatitis: No Hiatal Hernia: No Hypertension: Yes Implanted Vascular Access Dvce: No Musculoskeletal: Yes Neurologic: No Psychiatric: Yes Reproductive: No Respiratory: Yes (ASTHMA) Thyroid Disease: Yes (hypothyroidism) ?: Not Tubal Ligation: Yes Past Surgical History Abdominal Surgery: Yes (ALEJANDRA) Appendectomy: Yes Section: Yes Cholecystectomy: Yes Eye Surgery: Yes (CATARACT RIGHT EYE) Genitourinary Surgery: Yes (bladder suspension) Hysterectomy: Yes Pacemaker: No Other Surgery: Yes Social History Alcohol Use: No Tobacco Use: No Substance Use: No Allergies-Medications (Allergen,Severity, Reaction): Coded Allergies: acetaminophen (Verified Allergy, Severe, 06/05/17) unknown asparagus (Unverified Allergy, Severe, sob, 06/05/17) elizalde pod (Unverified Allergy, Severe, sob, 06/05/17) duloxetine (Unverified Allergy, Unknown, 06/05/17) rivaroxaban (Unverified Allergy, Unknown, 06/05/17) trazodone (Unverified Allergy, Unknown, 06/05/17) Reported Meds & Prescriptions Reported Meds & Active Scripts Active Metoprolol Tartrate 25 Mg Tab 25 Mg PO BID Omeprazole 20 Mg Tab 20 Mg PO BID Epinephrine Inj 1 Mg/Ml (1 Ml) Inj 0.3 Mg SQ ONCE PRN Give with any signs of respiratory distress. Epinephrine Inj 1 Mg/Ml (1 Ml) Inj 0.3 Mg IV PUSH ONCE PRN Reported Ventolin Hfa 18 GM Inh (Albuterol Sulfate) 90 Mcg/Act Aer 2 Puff INH Q6H PRN Vitamin D-1000 (Cholecalciferol) 1,000 Unit Tab 2,000 Units PO DAILY Vitamin K2 (Menaquinone-7) 40 Mcg Tab 40 Mcg PO DAILY Ondansetron Odt 4 Mg Tab 4 Mg SL TID PRN Diphenoxylate-Atropine 2.5-0.025 Mg Tab 1 Tab PO TID PRN Clotrimazole Topical (Clotrimazole) 1% Soln 1 Applic TOPICAL BID K-Tab (Potassium Chloride) 8 Meq Tab 8 Meq PO DAILY Oxycodone Hydrochloride (Oxycodone HCl) 5 Mg Cap 2 Tab PO Q8HR Pramipexole ER 24 HR (Pramipexole Dihydrochloride) 1.5 Mg Tab 1.5 Mg PO BID Ditropan (Oxybutynin Chloride) 5 Mg Tab 5 Mg PO Q12HR Multiple Vitamin (Multivitamin with Minerals) 1 Each Tablet Levothyroxine (Levothyroxine Sodium) 100 Mcg Tab 100 Mcg PO DAILY Lasix (Furosemide) 20 Mg Tab 20 Mg PO DAILY PRN Bupropion HCl ER 24 HR (Bupropion HCl) 300 Mg Tab 300 Mg PO DAILY Review of Systems Except as stated in HPI: all other systems reviewed are Neg Physical Exam Narrative GENERAL: Pleasant elderly female in no acute distress. SKIN: Warm and dry. HEAD: Atraumatic. Normocephalic. EYES: Pupils equal and round. No scleral icterus. No injection or drainage. ENT: No nasal bleeding or discharge. Mucous membranes pink and moist. NECK: Trachea midline. No JVD. CARDIOVASCULAR: Regular rate and rhythm. No murmur appreciated. RESPIRATORY: No accessory muscle use. Clear to auscultation. Breath sounds equal bilaterally. GASTROINTESTINAL: Abdomen soft, non-tender, nondistended. Hepatic and splenic margins not palpable. MUSCULOSKELETAL: No obvious deformities. No clubbing. No cyanosis. No edema. NEUROLOGICAL: Awake and alert. No obvious cranial nerve deficits. Motor grossly within normal limits. Normal speech. PSYCHIATRIC: Appropriate mood and affect; insight and judgment normal. Data Data Last Documented VS Vital Signs Date Time Temp Pulse Resp B/P (MAP) Pulse Ox O2 Delivery O2 Flow Rate FiO2 06/05/17 20:11 98 177/93 (121) 06/05/17 17:34 98.4 16 97 Orders Orders Complete Blood Count With Diff (06/05/17 17:48) Basic Metabolic Panel (Bmp) (06/05/17 17:48) Troponin I (06/05/17 17:48) Iv Access Insert/Monitor (06/05/17 17:48) Ecg Monitoring (06/05/17 17:48) Oxygen Administration (06/05/17 17:48) Oximetry (06/05/17 17:48) Chest, Pa & Lat (06/05/17 17:48) Ct Brain W/O Iv Contrast(Rout) (06/05/17 ) Creatine Kinase (Cpk) (06/05/17 19:20) Magnesium (Mg) (06/05/17 19:20) Troponin I (06/05/17 19:20) CKMB (06/05/17 19:20) CKMB% (06/05/17 19:20) Diet Regular Basic (06/05/17 Dinner) Electrocardiogram (06/05/17 18:46) Labs Laboratory Tests Test 06/05/17 19:20 White Blood Count 9.7 TH/MM3 Red Blood Count 4.61 MIL/MM3 Hemoglobin 13.3 GM/DL Hematocrit 39.0 % Mean Corpuscular Volume 84.8 FL Mean Corpuscular Hemoglobin 28.8 PG Mean Corpuscular Hemoglobin Concent 34.0 % Red Cell Distribution Width 16.8 % Platelet Count 198 TH/MM3 Mean Platelet Volume 8.3 FL Neutrophils (%) (Auto) 76.4 % Lymphocytes (%) (Auto) 15.8 % Monocytes (%) (Auto) 6.5 % Eosinophils (%) (Auto) 0.8 % Basophils (%) (Auto) 0.5 % Neutrophils # (Auto) 7.4 TH/MM3 Lymphocytes # (Auto) 1.5 TH/MM3 Monocytes # (Auto) 0.6 TH/MM3 Eosinophils # (Auto) 0.1 TH/MM3 Basophils # (Auto) 0.1 TH/MM3 CBC Comment DIFF FINAL Differential Comment Blood Urea Nitrogen 15 MG/DL Creatinine 0.84 MG/DL Random Glucose 98 MG/DL Calcium Level 9.4 MG/DL Magnesium Level 2.1 MG/DL Sodium Level 137 MEQ/L Potassium Level 4.0 MEQ/L Chloride Level 104 MEQ/L Carbon Dioxide Level 29.8 MEQ/L Anion Gap 3 MEQ/L Estimat Glomerular Filtration Rate 64 ML/MIN Total Creatine Kinase 207 U/L Creatine Kinase MB 0.5 NG/ML Creatine Kinase MB % 0.2 % Troponin I 0.03 NG/ML MDM Medical Decision Making Medical Screen Exam Complete: Yes Emergency Medical Condition: Yes Medical Record Reviewed: Yes Differential Diagnosis Atrial fibrillation, electrolyte abnormality, near-syncope, orthostatic hypotension Narrative Course The patient's EKG here demonstrates sinus rhythm. Looking over her EKGs from [facility] it appears that the patient had sinus tachycardia with occasional PVCs. Lab work, CT the brain has been ordered. The patient was put on cardiac telemetry. She was monitored here for a few hours and the highest heart rate recorded was in the low 100s. I discussed with the patient the option of staying for observation versus following up as an outpatient and she would prefer to be discharged. I did discuss with Dr. Noble is on-call for [facility] who will help arrange outpatient follow-up tomorrow and the patient will be placed on a low-dose metoprolol for rate control purposes. The patient and her daughter understand that she should return for any acutely new or worsening symptoms. She has been asymptomatic during her hospital stay. Diagnosis Primary Impression: Lightheadedness Admitting Information Admitting Physician Requests: Observation Additional Instructions: Medication as prescribed. Follow-up with your primary care physician tomorrow. Return for any acutely new or worsening symptoms such as severe lightheadedness, chest pain, shortness of breath. Med/Other Pt SpecificInfo: Prescription(s) given Scripts Metoprolol Tartrate (Metoprolol Tartrate) 25 Mg Tab 25 MG PO BID, #60 TAB 0 Refills Prov: Efrain Jacobo MD 06/05/17 Disposition: 01 DISCHARGE HOME Condition: Stable Janak Sifuentes Jun 05, 2017 18:47
[2017-06-05] MEDS ORDERED: DIPH2.5T14 PO (18:49)
[2017-06-05] MEDS ORDERED: VITA1000 PO (18:49)
[2017-06-05] MEDS ORDERED: CLOTR1%T TOPICAL (18:49)
[2017-06-05] MEDS ORDERED: ONDA4TAB7 SL (18:49)
[2017-06-05] MEDS ORDERED: MENA1TAB PO (18:49)
[2017-06-05] MEDS ORDERED: VENTAER INH (18:49)
[2017-06-05 19:28] LABS: AUTOMATED NEUTROPHIL # 7.4 TH/MM3 (1.8-7.7); BASOPHIL # 0.1 TH/MM3 (0-0.2); BASOPHIL % 0.5 % (0.0-2.0); EOSINOPHIL # 0.1 TH/MM3 (0-0.4); EOSINOPHIL % 0.8 % (0.0-4.0); HEMOGLOBIN 13.3 GM/DL (11.6-15.3); LYMPH % 15.8 % (9.0-44.0); LYMPHOCYTE # 1.5 TH/MM3 (1.0-4.8); MEAN CELL VOLUME 84.8 FL (80.0-100.0); MEAN CORPUSCULAR HEMOGLOBIN 28.8 PG (27.0-34.0); MEAN PLATELET VOLUME 8.3 FL (7.0-11.0); MONO % 6.5 % (0.0-8.0); MONOCYTE # 0.6 TH/MM3 (0-0.9); NEUT % 76.4 % (16.0-70.0); PLATELET COUNT 198 TH/MM3 (150-450); RED BLOOD COUNT 4.61 MIL/MM3 (4.00-5.30); RED CELL DISTRIBUTION WIDTH 16.8 % (11.6-17.2); WHITE BLOOD COUNT 9.7 TH/MM3 (4.0-11.0)
[2017-06-05 20:00] LABS: BICARBONATE 29.8 MEQ/L (21.0-32.0); CALCIUM 9.4 MG/DL (8.5-10.1); CREATININE 0.84 MG/DL (0.50-1.00); MAGNESIUM 2.1 MG/DL (1.5-2.5)
[2017-06-05 20:09] LABS: TROPONIN I 0.03 NG/ML (0.02-0.05)
[2017-06-05 20:11] VITALS: BP 177/93; PULSE 98
--- NOTE | 2017-06-05 20:42 | RADRPT ---
EXAM DATE/TIME: 06/05/2017 20:15 [place] COMPARISON: CT BRAIN W/O CONTRAST, August 07, 2015, 14:25. INDICATIONS : Dizziness with palpitations. RADIATION DOSE: 34.35 CTDIvol (mGy) MEDICAL HISTORY : Hypertension. SURGICAL HISTORY : Hysterectomy. ENCOUNTER: Initial ACUITY: 1 day PAIN SCALE: 1/10 LOCATION: Bilateral cranial TECHNIQUE: Multiple contiguous axial images were obtained of the head. Using automated exposure control and adj ustment of the mA and/or kV according to patient size, radiation dose was kept as low as reasonably a chievable to obtain optimal diagnostic quality images. DICOM format image data is available electro nically for review and comparison. FINDINGS: CEREBRUM: There is a stable extra-axial left frontal high density mass measuring 3.5 x 2.8 cm. Moderate diffuse cerebral volume loss. The ventricles are normal for degree of atrophy. No evidence of midline shift , mass lesion, hemorrhage or acute infarction. No extra-axial fluid collections are seen. POSTERIOR FOSSA: The cerebellum and brainstem are intact. The 4th ventricle is midline. The cerebellopontine angle i s unremarkable. EXTRACRANIAL: The visualized portion of the orbits is intact. SKULL: The calvaria is intact. No evidence of skull fracture. CONCLUSION: 1. Stable 3.5 x 2.8 cm left frontal extra-axial mass, likely meningioma. 2. Stable senescent changes without acute intracranial abnormality. Asael Terrazas MD on June 05, 2017 at 20:38 Board Certified Radiologist. This report was verified electronically.
[2017-06-05] MEDS ORDERED: METO25TA3 PO (21:05)
--- NOTE | 2017-06-06 14:36 | EKG ---
Date Performed: 06/05/2017 Time Performed: 18:46:57 PTAGE: 89 years EKG: Sinus rhythm WITH SINUS ARRHYTHMIA PATTERN CONSISTENT WITH PULMONARY DISEASE LEFT ANTERIOR FASCICULAR BLOCK ABNOR MAL ECG PREVIOUS TRACING : 03/23/2017 02.51 Since the prior tracing, there has been no significant monahan DOCTOR: Heather Dawson Interpretating Date/Time 06/06/2017 14:34:03
== END 2017-06-05 21:32 | disposition home or self-care (01) ==
LOC: NEPC 17:29
DX: R42 Dizziness and giddiness (principal); E03.9 Hypothyroidism, unspecified; I10 Essential (primary) hypertension; J45.909 Unspecified asthma, uncomplicated; R94.31 Abnormal electrocardiogram [ECG] [EKG]; Z79.899 Other long term (current) drug therapy
CPT/HCPCS: 70450; 71046; 80048; 82550; 82552; 83735; 84484; 85025; 93005